=== PATIENT | female | born 1950 | race Caucasian/White ===

== ENCOUNTER 2018-02-14 13:25 | Emergency (ER) | payer MEDICARE, SELFPAY ==
[2018-02-14 13:38] VITALS: BP 139/75; PULSE 61; RESP 16; TEMP 36.7; O2SAT 98
--- NOTE | 2018-02-14 14:35 | DI.CT.S_ITS ---
PROCEDURE: CT CERVICAL SPINE WO CON INDICATIONS: head/neck pain s/p fall TECHNIQUE: Noncontrast 3 mm thick sections acquired from the skull base to the T4 level. Sagittal and coronal reformats were then constructed. For radiation dose reduction, the following was used: automated exposure control, adjustment of mA and/or kV according to patient size. COMPARISON: None. FINDINGS: Image quality: Excellent. Bones: There is levoconvex curvature to the cervical spine. Loss of cervical lordosis. No cervical fractures or dislocations. Degenerative disc disease is most marked at C5-6 and C6-7 slight anterolisthesis at C4-5 and retrolisthesis at C5-6 there is calcification in the posterior spinous ligament at the C5-6 level. Visualized superior ribs are intact. There are Schmorl's nodes and slight depression of the superior endplates at T1 and T3 Soft tissues: A left-sided lead extends down the superior vena cava. Prevertebral soft tissues are normal in thickness. No paravertebral hematomas. No apical pneumothoraces. IMPRESSION: 1. Loss of cervical lordosis and mild levoconvex curvature, possible muscle spasm. 2. Degenerative disc disease and spondylosis C5-6 greater than C6-7. 3. Degenerative changes with Schmorl's nodes and mild depression of the superior endplates of T1 and T3, likely chronic but indeterminate in absence of comparison exams. Dictated by: Matt Foster M.D. on 02/14/2018 at 14:51 Approved by: Matt Foster M.D. on 02/14/2018 at 14:59
--- NOTE | 2018-02-14 14:35 | DI.CT.S_ITS ---
PROCEDURE: CT HEAD/BRAIN WO CON INDICATIONS: head injury with syncope TECHNIQUE: Noncontrast 4.5 mm thick angled axial sections acquired from the foramen magnum to the vertex, with coronal and sagittal reformats. For radiation dose reduction, the following was used: automated exposure control, adjustment of mA and/or kV according to patient size. COMPARISON: [facility], MR, BRAIN W/O CONTRAST, 04/14/2012, 8:21. FINDINGS: Image quality: Head is mildly rotated within the gantry CSF spaces: Basal cisterns are patent. No extra-axial fluid collections. The ventricles are symmetric in size and shape. Brain: No intracranial bleeds or masses. There is cerebral volume loss for age, with resultant ventricular and sulcal prominence. There are periventricular and deep white matter chronic small vessel ischemic changes. There is intracranial internal carotid artery atherosclerosis. Skull and face: Calvarium and visualized facial bones appear intact, without suspicious lesions. Sinuses: Visualized sinuses and mastoids are clear. IMPRESSION: No acute intracranial abnormality. Dictated by: Matt Foster M.D. on 02/14/2018 at 14:48 Approved by: Matt Foster M.D. on 02/14/2018 at 14:51
[2018-02-14] MEDS: ACETAMINOPHEN 325 MG TABLET 650 MG PO (14:49)
[2018-02-14 15:05] VITALS: BP 153/93; PULSE 55; RESP 18; TEMP 36.7; O2SAT 97
--- NOTE | 2018-02-14 15:06 | ED.HEATRA ---
HPI - Head Injury General Chief complaint: Head Injury Stated complaint: GLF-head laceration Time Seen by Provider: 02/14/18 13:30 Source: patient Mode of arrival: ambulatory Limitations: no limitations History of Present Illness HPI Narrative: Patient presents to the emergency department today with a chief complaint of a head injury after a fall from a log. She fell backwards and struck her scalp suffering a laceration and a brief loss of consciousness. Additionally she complains of some neck pain. She has no other injuries and is now awake, alert and oriented. She denies use of alcohol or street drugs. She does not have any blood thinners on board. Her tetanus will need to be updated. She denies numbness, tingling or weakness of her extremities. MD Complaint: head injury Onset (ago): minute(s) Arrival Conditions: C-spine immobilization present Mechanism of Injury: fall Place: outdoors Loss of Consciousness: yes Location of injury: occipital Severity: moderate Quality: burning Radiation: none Other Injuries: laceration Associated symptoms: denies other symptoms Related Data Previous Rx's Medication Instructions Recorded ondansetron [Zofran ODT] 4 mg PO Q6H PRN #14 tab 02/14/18 Allergies Allergy/AdvReac Type Severity Reaction Status Date / Time Sulfa (Sulfonamide Allergy Verified 02/14/18 13:40 Antibiotics) any med that prolongs QT AdvReac Uncoded 02/14/18 13:40 Review of Systems Review of Systems All systems reviewed & are unremarkable except as noted in HPI and below Constitutional Denies chills, Denies fever(s), Reports headache(s), Denies lethargy and Denies weakness Eyes Denies change in vision, Denies eye discharge, Denies irritation and Denies loss of vision ENT Ears, Nose, Mouth, and Throat: Denies change in voice, Reports headache(s), Reports neck pain and Denies sore throat Cardiovascular Denies chest pain, Denies irregular heart rhythm, Denies lightheadedness, Denies palpitations, Denies dyspnea, Denies dyspnea on exertion and Denies orthopnea Respiratory Denies cough, Denies dyspnea, Denies dyspnea on exertion and Denies wheezing Gastrointestinal Gastrointestinal: Denies abdominal pain, Denies change in bowel habits, Denies diarrhea, Denies nausea and Denies vomiting Genitourinary Denies hematuria, Denies flank pain, Denies urinary incontinence and Denies urinary urgency Musculoskeletal Reports limited range of motion and Reports neck pain Integumentary/Breasts Denies pruritus, Denies erythema, Denies rash and Reports wounds Neurologic Denies confusion, Reports headache(s), Denies loss of vision and Denies weakness Psychiatric Denies anxiety, Denies confusion, Denies depression, Denies homicidal ideation and Denies suicidal ideation Endocrine Denies palpitations Hematologic/Lymphatic Denies easy bruising Allergic/Immunologic Denies wheezing [employer] Social History Smoking Status: Never smoker Exam Narrative Exam Narrative: Pleasant 67-year-old female, obviously in pain. GCS 15, a and O x3 Initial Vital Signs Initial Vital Signs: Vital Signs Temperature 98.0 F 02/14/18 13:38 Pulse Rate 61 02/14/18 13:38 Respiratory Rate 16 02/14/18 13:38 Blood Pressure 139/75 H 02/14/18 13:38 Pulse Oximetry 98 02/14/18 13:38 Const General: cooperative, well developed and in distress Nutritional Appearance: well nourished Orientation: alert, awake, oriented x3 and not confused HENMT Head: laceration Nose: external nose normal Face and sinus: normal facial exam Mouth: oral mucosae normal Teeth and gingiva: dentition normal Throat: posterior oropharynx normal Eyes General: appearance normal, both eyes and all related structures Eyelids: eyelids normal Conjunctivae: conjunctivae normal Sclera: sclerae normal Pupils: PERRL EOM: EOM intact bilaterally Neck Neck: normal visual inspection, supple and tender (Midline) Chest Chest: normal inspection of the chest Cardio Rate: regular rate Rhythm: regular rhythm Heart Sounds: no click, no gallops, no murmurs and no rubs Pulses: normal peripheral pulses Back/Spine/Pelvis Back: No CVA tenderness Cervical Spine: cervical ROM normal and No pain with cervical ROM Thoracic/Lumbar Spine: thoracic and lumbar spine normal to inspection Skin Trauma: laceration Neuro General: alert, oriented x3, gait normal and no focal motor deficits Speech: speech normal Psych Appearance: well kempt Mental Status: mental status grossly normal Attitude: cooperative Thought Content: normal and suicidality Judgment: judgment good Procedures Laceration Repair Laceration 1: Site: scalp Size (cm): 3 Description: linear Depth: simple, single layer Local Anesthetic: lidocaine 1% and with bicarb Amount of anesthesia used (mL): 4 Pre-repair: wound explored, irrigated extensively and deep structures intact Skin layer closed with: other ([place]) Course Orders Ordered: ED Orders 02/14/18 14:35 CT cervical spine wo con Stat CT head/brain wo con Stat Discontinued Medications Acetaminophen (Tylenol) 650 mg PO NOW ONE Stop: 02/14/18 14:31 Last Admin: 02/14/18 14:49 Dose: 650 mg Diphtheria/Tetanus/Acell Pertussis (Adacel) 0.5 ml IM .ONCE ONE Stop: 02/14/18 15:27 Last Admin: 02/14/18 15:33 Dose: 0.5 ml Vital Signs - 8 hr 02/14/18 13:38 02/14/18 15:05 Temperature 98.0 F 98.0 F Pulse Rate 61 55 L Respiratory Rate 16 18 Blood Pressure 139/75 H Blood Pressure [Left Arm] 153/93 H Pulse Oximetry 98 97 MDM - Head Injury Imaging Data CT scan - head: Radiologist's impression: PROCEDURE: CT HEAD/BRAIN WO CON INDICATIONS: head injury with syncope TECHNIQUE: Noncontrast 4.5 mm thick angled axial sections acquired from the foramen magnum to the vertex, with coronal and sagittal reformats. For radiation dose reduction, the following was used: automated exposure control, adjustment of mA and/or kV according to patient size. COMPARISON: [facility], MR, BRAIN W/O CONTRAST, 04/14/2012, 8:21. FINDINGS: Image quality: Head is mildly rotated within the gantry CSF spaces: Basal cisterns are patent. No extra-axial fluid collections. The ventricles are symmetric in size and shape. Brain: No intracranial bleeds or masses. There is cerebral volume loss for age, with resultant ventricular and sulcal prominence. There are periventricular and deep white matter chronic small vessel ischemic changes. There is intracranial internal carotid artery atherosclerosis. Skull and face: Calvarium and visualized facial bones appear intact, without suspicious lesions. Sinuses: Visualized sinuses and mastoids are clear. IMPRESSION: No acute intracranial abnormality. Dictated by: Matt Foster M.D. on 02/14/2018 at 14:48 Approved by: Matt Foster M.D. on 02/14/2018 at 14:51 CT Cspine: Radiologist's impression: PROCEDURE: CT CERVICAL SPINE WO CON INDICATIONS: head/neck pain s/p fall TECHNIQUE: Noncontrast 3 mm thick sections acquired from the skull base to the T4 level. Sagittal and coronal reformats were then constructed. For radiation dose reduction, the following was used: automated exposure control, adjustment of mA and/or kV according to patient size. COMPARISON: None. FINDINGS: Image quality: Excellent. Bones: There is levoconvex curvature to the cervical spine. Loss of cervical lordosis. No cervical fractures or dislocations. Degenerative disc disease is most marked at C5-6 and C6-7 slight anterolisthesis at C4-5 and retrolisthesis at C5-6 there is calcification in the posterior spinous ligament at the C5-6 level. Visualized superior ribs are intact. There are Schmorl's nodes and slight depression of the superior endplates at T1 and T3 Soft tissues: A left-sided lead extends down the superior vena cava. Prevertebral soft tissues are normal in thickness. No paravertebral hematomas. No apical pneumothoraces. IMPRESSION: 1. Loss of cervical lordosis and mild levoconvex curvature, possible muscle spasm. 2. Degenerative disc disease and spondylosis C5-6 greater than C6-7. 3. Degenerative changes with Schmorl's nodes and mild depression of the superior endplates of T1 and T3, likely chronic but indeterminate in absence of comparison exams. Dictated by: Matt Foster M.D. on 02/14/2018 at 14:51 Approved by: Matt Foster M.D. on 02/14/2018 at 14:59 Discharge Plan Departure Patient Disposition: Home, Self-Care Clinical Impression: Concussion, Cervical paraspinal muscle spasm Discharge Date/Time: 02/14/18 15:51 Interventions: ED Discharge Assessment Last Done: 02/14/18 15:49 Instructions: DI for Concussion Activity Restrictions/Additional Instructions: Please keep the wound clean and dry to the best of your ability. Please monitor for signs of infection such as redness to the skin or increasing pain. Have the lele removed by your doctor in about 7 days. If you are unable to get into your doctor, we would be happy to remove the lele in that same timeframe. You have a slight concussion and will likely have a mild headache and some nausea for a few days. Avoiding highly stimulating activities and even TV or computers may be helpful in minimizing your symptoms. Avoid activities that will put you at risk for another head injury for at least a week. You can take tylenol or motrin for headache or the prescription provided for nausea/vomiting. Return for worsening or persistent symptoms Prescriptions: New ondansetron [Zofran ODT] 4 mg tablet,disintegrating 4 mg PO Q6H PRN (Reason: nausea and vomiting) Qty: 14 RF: 0
[2018-02-14] MEDS: TET,DIPH,PERTUSS(ACELL),VAC/PF 0.5 ML SYRINGE IM (15:33)
--- NOTE | 2018-02-14 15:47 | PC.NURSE ---
simple scalp lac/ lele x 9 by md, aware of follow up/
== END 2018-02-14 15:51 | disposition home or self-care (01) ==
PROVIDERS: Emergency Provider Emergency Medicine
DX: S06.0X9A Concussion with loss of consciousness of unspecified duration, initial encounter (principal); S01.01XA Laceration without foreign body of scalp, initial encounter; M62.838 Other muscle spasm; W17.89XA Other fall from one level to another, initial encounter
CPT/HCPCS: 12001; 12002; 70450; 72125; 90471; 99283; 90715

== ENCOUNTER 2019-01-11 10:17 | Inpatient (IN) | payer MEDICARE, SELFPAY ==
[2018-12-28 13:59] VITALS: BMI 26.4
[2019-01-11] VITALS (14 sets, daily range): BP systolic 115–153; BP diastolic 60–92; PULSE 57–96; RESP 10–20; TEMP 36–36.9; O2SAT 90–100; BMI 27.3
--- NOTE | 2019-01-11 | DI.RAD.S_ITS ---
PROCEDURE: XR LUMBAR SPINE 2-3V INDICATIONS: L3-4, L4-5 TLIF TECHNIQUE: 3 intraoperative views of the lumbar spine were acquired. COMPARISON: None. FINDINGS: Posterior fusion hardware from L3-L5 is present and appears in appropriate position. Disc spacers at L3-4 and L4-5 are present. Bony alignment is grossly normal. IMPRESSION: Expected intraoperative appearance of Lower lumbar fusion and disc spacer placement. Dictated by: Stella Chanel M.D. on 01/11/2019 at 15:10 Approved by: Stella Chanel M.D. on 01/11/2019 at 15:15
[2019-01-11] MEDS: LACTATED RINGERS 1,000 ML 42 ML IV ×3 (10:59→18:10)
--- NOTE | 2019-01-11 11:49 | PM.PREOP ---
Pre-operative Note Interval Note History & Physical reviewed/Exam performed by Physician: Yes Changes to H&P: No
[2019-01-11] MEDS: CEFAZOLIN 2 GM/100 ML FROZ.PIGGY IV ×2 (12:19→21:07)
--- NOTE | 2019-01-11 13:10 | SUR.OPER ---
Prone on spine table, head in foam head support, padded chest and pelvic supports, gel pad at knees, lower legs supported by pillows; nipples, genitalia and toes free of pressure, arms secured on foam padded arm boards at <90 degrees abduction. Tape over blanket at thigh secured to table.
[2019-01-11] MEDS: BUPIVACAINE 0.25% W/ EPI 30 ML VIAL INJ (13:25)
[2019-01-11] MEDS: BUPIVACAINE LIPOSOME 266 MG/20 ML VIAL INJ (13:27)
--- NOTE | 2019-01-11 15:43 | PM.OP.1 ---
Operative Date/Time/Diagnoses Date of procedure: 01/11/19 Time of procedure: 12:43 Pre-op diagnosis: 1. L3-4, L4-5 spondylolisthesis 2. L3-4, L4-5 spinal stenosis Post-op diagnosis: same Procedure & Clinicians Procedure: 1. L3-4, L4-5 Postero-lateral and posterior interbody fusion 2. L3-4, L4-5 interbody cage placement. 3. L3-4, L4-5 decompressive laminectomy with bilateral facetecomies 4. L3-4, L4-5 Posterior segmental instrumentation 5. [place] of bone marrow from iliac crest 6. Utilization of microsurgical technique and operating microscope Same procedure as scheduled: Yes Indications: Patient has been having chronic back pain and worsening lumbar radiculopathy. Patient failed multiple conservative management with worsening pain weakness and numbness in her lower extremity. Patient has been having difficulty performing activity of daily living. After discussing risks benefits of treatment options, patient elected proceed with surgery. Surgeon: Carmelita Chen Carton Forming Machine Tender: Jerrica Mercer Click Yes if Unassisted: No Anesthesia Type: General Operative Notes Closure Type: primary Specimen(s): none sent Prosthetic devices, grafts, tissues, transplants, or devices: Globus revolve screws, Rise cages Applied: catheter Estimated Blood Loss (mL): 100 Blood products transfused: none Procedure in detail: Patient was seen in the preoperative area. Risks and benefits of the surgery was discussed with the patient. Informed consent was obtained from the patient and placed in the chart. Surgical site was marked. Patient was taken to the operative room. General anesthesia was administered. Prophylactic antibiotic was given to the patient less than 30 min before the incision was made. Patient was placed into a prone position on the Adolph table. Patient's back was then prepped and draped in the sterile fashion. Time-out was performed at this time. Using AP and lateral C-arm imaging the interval between L3-4, L4-5 was identified and marked on patient's back. A 2 inch incision 2 in from midline was made on the right side first. The fascia was incised in line with skin incision. Globus MARS retractors was placed inside the incision and docked onto the L3 and L4 lamina. Using microsurgical technique and operating microscope, a L3 and L4 laminectomy and L3-4, L4-5 facetectomy was performed using a Kerrison rongeur. During the process of decompression more than 75% of bilateral L3-4, L4-5 facets were removed in order to decompress the spinal canal and the lateral recess. The L3-4, L4-5 level was grossly unstable after the decompression was completed and requiring the fusion procedure. The disc space at L3-4, L4-5 was identified. And a total diskectomy was performed at L3-4, L4-5 level. The endplates were decorticated using a rasp and shaver. The total diskectomy and decortication was performed at L3-4, L4-5 level in order to to accomplish a L3-4, L4-5 fusion. The local bone from the laminectomy and facetectomy was saved for local bone grafting. After the total diskectomy and decortication was completed, Bio4 bone graft material was combined with local bone that was harvested earlier. At this time, a separate skin is incision was made over the iliac crest. A Jamshidi needle was inserted into the iliac crest through a separate skin incision. 5 cc of bone marrow aspiration was obtained through the separate skin incision using a Jamshidi needle from the iliac crest. The bone marrow aspiration was combined with local bone and the Bio4 bone grafting material. The bone grafting material was placed into the L3-4, L4-5 interbody space along with two cages, one expandable cage at each level. The cages were expanded to their maximum height using the torque limiting screwdriver. At this time a mirror image incision was made on the left side. The fascia was incised in line with the skin incision. Globus MARS retractor was inserted and docked onto the L3-4, L4-5 posterolateral gutter. Using the power drill, posterior-lateral decortication was performed at L3-4, L4-5 level until bleeding cortical bone was identified. The remaining bone grafting material was placed into the L3-4, L4-5 posterior lateral gutter he order to accomplish posterolateral fusion at the L3-4, L4-5 levels. Using the double C-arm technique, pedicle screws were placed into the L3, L4, L5 pedicles bilaterally. This was done by placing the Jamshidi needle into the pedicles, then placing the guidewires over the Jamshidi needle, and finally placing the cannulated screws over the guidewires bilaterally. After the pedicle screws were placed, 2 titanium rods was locked into the heads of the pedicle screws using locking caps and torque limiting screwdriver. Total 6 pedicles screws were placed. After all the hardware was placed, and confirmed with AP and lateral C-arm imaging, the wound was then irrigated with sterile normal saline and packed with Ray-Izabel gauze for 3 min to accomplish hemostasis. After the gauze was removed the deep fascia was closed with #1 Vicryl suture. The subcutaneous layer was closed with 2-0 Vicryl. The skin was closed with skin lele. Patient tolerated the procedure well. There were no complications. Complications: none Condition: stable Disposition: PACU Plan for aftercare: Admit to inpatient hospital
[2019-01-11] MEDS: fentaNYL 100 MCG/2 ML INJ 50 MCG IV ×2 (15:45→15:55)
[2019-01-11] MEDS: hydrOXYzine 50 MG/ML INJ 25 MG IM (15:56)
[2019-01-11] MEDS: HYDROMORPHONE 2 MG INJ 0.5 MG IV ×2 (16:12→16:33)
[2019-01-11] MEDS: SODIUM CHLORIDE 0.9% 1,000 ML 100 ML IV (17:32)
[2019-01-11] MEDS: OXYCODONE IR 5 MG TABLET 10 MG PO (17:32)
[2019-01-11] MEDS: HYDROMORPHONE 1 MG INJ 0.5 MG IV ×2 (17:33→21:13)
[2019-01-11] MEDS: INSULIN ASPART 100 UNIT/ML INSULN PEN SUBCUT ×2 (18:19→21:10)
[2019-01-11] MEDS: hydrOXYzine pamoate 25 MG CAPSULE 50 MG PO (21:01)
[2019-01-11] MEDS: GABAPENTIN 300 MG CAPSULE 900 MG PO (21:07)
[2019-01-11] MEDS: DOCUSATE 100 MG CAPSULE PO (21:08)
[2019-01-11] MEDS: METFORMIN HCL 500 MG TABLET PO (21:08)
[2019-01-11] MEDS: SENNOSIDES 8.6 MG TABLET 17.2 MG PO (21:08)
[2019-01-11] MEDS: BUSPIRONE 15 MG TABLET 7.5 MG PO (21:09)
[2019-01-11] MEDS: ATORVASTATIN 20 MG TABLET PO (21:09)
[2019-01-11] MEDS: LEVOTHYROXINE 25 MCG TABLET PO (21:10)
[2019-01-11] MEDS: INSULIN NPH 100 UNIT/ML VIAL 10 UNIT SUBCUT (21:15)
[2019-01-11] MEDS: OXYCODONE ER 10 MG TAB PO (21:19)
[2019-01-12] VITALS: BP 144/68; PULSE 65; RESP 18; TEMP 36.9; O2SAT 98
[2019-01-12] MEDS: OXYCODONE IR 5 MG TABLET 10 MG PO ×5 (00:13→16:26)
[2019-01-12] MEDS: CEFAZOLIN 2 GM/100 ML FROZ.PIGGY IV (03:23)
[2019-01-12] MEDS: SODIUM CHLORIDE 0.9% 1,000 ML 100 ML IV (03:23)
[2019-01-12 03:45] VITALS: BP 161/83; PULSE 64; RESP 16; TEMP 36.8; O2SAT 99
[2019-01-12 05:59] LABS: Hemoglobin 11.7 g/dL (12.0-16.0)
[2019-01-12 08:00] VITALS: BP 157/75; PULSE 59; RESP 18; TEMP 36.6; O2SAT 100
[2019-01-12] MEDS: INSULIN ASPART 100 UNIT/ML INSULN PEN SUBCUT ×2 (08:04→20:57)
[2019-01-12] MEDS: FLUTICASONE 120 SPRAY/16 GM SPRAY.SUSP NASAL (08:04)
[2019-01-12] MEDS: INSULIN NPH 100 UNIT/ML VIAL 10 UNIT SUBCUT ×2 (08:04→20:58)
[2019-01-12] MEDS: DOCUSATE 100 MG CAPSULE PO ×2 (08:05→20:55)
[2019-01-12] MEDS: GABAPENTIN 300 MG CAPSULE PO (08:05)
[2019-01-12] MEDS: LOSARTAN 50 MG TABLET PO (08:05)
[2019-01-12] MEDS: METFORMIN HCL 500 MG TABLET PO ×2 (08:05→20:56)
[2019-01-12] MEDS: ACETAMINOPHEN 325 MG TABLET 650 MG PO ×2 (08:05→17:40)
[2019-01-12] MEDS: PANTOPRAZOLE 20 MG TABLET PO (08:05)
[2019-01-12] MEDS: OXYCODONE ER 10 MG TAB PO (08:05)
[2019-01-12] MEDS: SERTRALINE 50 MG TABLET PO (08:05)
[2019-01-12] MEDS: hydrOXYzine pamoate 25 MG CAPSULE PO ×2 (08:06→14:52)
--- NOTE | 2019-01-12 10:10 | PT.IIE ---
Current Diagnoses Other secondary scoliosis, lumbar region (01/11/19) Spondylolisthesis, lumbar region (01/11/19) Spinal stenosis, lumbar region with neurogenic claudication (01/11/19) Surgery Performed Operation Date: 01/11/19 12:15 Actual Procedures p L3-4,L4-5 TLIF w/Posterior Instru. - Carmelita Chen MD Surgical History (Last Updated 12/28/18 @ 14:33 by Rama Cutler RN) AICD (automatic cardioverter/defibrillator) present (Acute ~12/2013) Hx of bilateral cataract extraction (Acute) Hx of cardiac catheterization (Acute) Medical History (Last Updated 01/03/19 @ 15:08 by Rama Cutler RN) Arthritis (Acute) Asthma (Acute) CAD (coronary artery disease) (Acute) CVA (cerebral vascular accident) (Acute ~2004) Cardiac arrest (Acute ~12/2013) Cardiomyopathy (Acute ~12/2017) Chronic pain (Acute) Diabetes (Acute) Diabetic neuropathy (Acute) GERD (gastroesophageal reflux disease) (Acute) H/O: hysterectomy (Acute ~1979) HTN (hypertension) (Acute) Hearing impaired (Acute) Hypothyroid (Acute) Kidney failure (Acute ~2001) Mixed hyperglyceridemia (Acute) Pneumonia (Acute) Prolonged QT interval (Acute) Severe anxiety with panic (Acute) TIA (transient ischemic attack) (Acute) Physical Therapy Inpatient Evaluation/Re-Eval M1 PT/OT-IP Prior Functional Status Start: 01/12/19 13:20 Freq: NEEDED Status: Active Protocol: Document 01/12/19 10:10 AB (Rec: 01/12/19 13:33 AB [id number]) Medical Review Prior Functional Status Medical History Reviewed Yes Communication able to make needs known Mobility and Gait pt stated that she is modified independent with all mobilities and ambulation without AD indoor but uses a 4WW for outdoor/long distance ambulation Social History Household Members spouse Living Arrangements RV Number of Floors (Floors) Two Floors Number of Stairs To Enter/Railing? 4 steps to enter with L rail ascending 3 steps to bedroom with R rail ascending Home Environment Standard Height Toilet Walk in Shower Built-In Shower Seat Home Equipment Four Wheel Walker Straight Cane Hand Held Shower Grab Bars In Shower Additional Social History Comment pt stated that she has a high bed and uses a stool to get into the bed. pt also has walking sticks M2 PT-IP Current Condition Start: 01/12/19 13:20 Freq: NEEDED Status: Active Protocol: Document 01/12/19 10:10 AB (Rec: 01/12/19 13:33 AB [id number]) Physical Therapy Current Condition Current Condition Evaluation Date 01/12/19 Treatment Diagnosis s/p L3-4 fusion/lami; difficulty in walking Onset Date 01/11/19 Precautions Lumbar Precautions Log Roll No Twisting Limit Bending Lifting Restriction of 10 lbs Gait Belt above Incisional Area M3 PT-IP Subjective Start: 01/12/19 13:20 Freq: NEEDED Status: Active Protocol: Document 01/12/19 10:10 AB (Rec: 01/12/19 13:33 AB [id number]) Subjective Physical Therapy Visit Type Type Initial Evaluation Visit Start Time 10:10 Visit Stop Time 10:49 Total Visit Minutes 39 Number of CRYPTOLOGIC SUPERVISOR Visits 0 Physical Therapy Visit Comments Patient Comments pt agreeable to do PT Therapy Pain Assessment Pain When Pain Assessed At Rest Pain Present Pain Present Pain Reported Location back Intensity 5 Scale Used Numeric (1 - 10) Pain Management Techniques Apply Cold Re-positioning Timing of Activity with Medications M4 PT-IP Mobility and Gait Start: 01/12/19 13:20 Freq: NEEDED Status: Active Protocol: Document 01/12/19 10:10 AB (Rec: 01/12/19 13:33 AB [id number]) PT-Bed Mobility Assessment Rolling Type of Rolling Log Rolling Level of Assist Minimal Assistance Supine to Sit Supine to Sit Minimal Assistance 1 Person Assistance PT-Transfer Assessment Sit to and From Stand Sit to and from Stand Minimal Assistance 1 Person Assistance Use of Upper Extremities Equipment Transfer Assistive Device Gait Belt Front Wheeled Walker Orthotic/Prosthetic Devices or Brace: No Transfers Transfer Destination Chair Transfer Technique Stand Step Pivot Transfer Ability Level of Assist Minimal Assistance 1 Person Assistance Use of Upper Extremities Comments Mobility Comments BP supine: 140/79. pt completed supine to sit min A and cues for log roll technique. pt with c/o dizziness. BP: 129/86. pt sat on EOB for a few minutes and stated that dizziness has decreased . BP checked again 141/70. pt ambulated in room. pt agreed to sit on chair. BP checked: 141/61. positioned pt on the chair. pt continues to c/o dizziness. BP checked again: 129/83. informed nurse regarding BP and c/o dizziness. Gait Assessment Gait Gait Assistance Required: Minimum Assistance Distance (Feet) 30 Able to Maintain Weight Bearing Status Yes During Gait Assistive Devices Assistive Device Gait Belt Front Wheeled Walker Orthotic/Prosthetic Devices or Brace: No Gait Deviations General Gait Pattern Antalgic Decreased Stride Length Decreased Feet Clearance Factors Limiting Gait Function Factors Limiting Gait Function Decreased Activity Tolerance Decreased Strength Difficulty Following Directions Limited Range of Motion Pain Poor Balance Poor Safety Awareness PT-Balance Assessment Sitting Balance and Reactions Static Sitting Balance Ability Good Dynamic Sitting Balance Ability Good Standing Balance and Reactions Static Standing Balance Ability Fair Dynamic Standing Balance Ability Fair M5 PT-IP Objective Assessments Start: 01/12/19 13:20 Freq: NEEDED Status: Active Protocol: Document 01/12/19 10:10 AB (Rec: 01/12/19 13:33 AB [id number]) Orientation Orientation/Cognition Level of Alertness Alert Orientation Name Place Situation Language Function Ability No Deficits Noted Safety Awareness Decreased Safety Awareness Memory Description Short Term Impaired Gross Range of Motion Lower Extremity ROM Assessment Within Functional Limits Strength Lower Extremity Strength Assessment Bilaterally Impaired Hip 4-/5 Knee 4-/5 Coordination Assessment Gross Coordination Gross Coordination WNL Sensation Assessment Sensation Gross Sensation WNL Muscle Tone Muscle Tone WNL Yes M6 PT-IP Treatment Start: 01/12/19 13:20 Freq: NEEDED Status: Active Protocol: Document 01/12/19 10:10 AB (Rec: 01/12/19 13:33 AB [id number]) Physical Therapy Treatment Education Education Provided Precautions Weight Bearing Status Post-Op Packet Safety M7 PT-IP Assessment and Plan Start: 01/12/19 13:20 Freq: NEEDED Status: Active Protocol: Document 01/12/19 10:10 AB (Rec: 01/12/19 13:33 AB [id number]) PT Summary Assessment and Plan Potential Rehabilitation Potential Good Status of Condition at Evaluation Evolving Summary Impairments Pain ROM Strength Balance Coordination Sensation Tone Cognition Bed Mobility Transfers Gait Activity Tolerance Assessment Summary pt requiring min A for mobility and will likely progress during hospital stay. pt will have his spouse to assist her at home. will continue to assess progress. Goals Bed Mobility Goal Independent Transfer Goal Independent Front Wheeled Walker Four Wheeled Walker Gait Goal Independent Front Wheel Walker Four Wheel Walker Gait Distance 150 Other Goals up/down 4 steps L rail ascending; up/down 3 steps R rail ascending SBA Days to Meet Goals 5 Frequency of Treatment Frequency Of Treatment Twice a Day Treatment Plan Physical Therapy Treatment Plan Bed Mobility Training Transfer Training Gait Training Therapeutic Exercise Balance Retraining Post Op Education Discharge Planning Hot or Cold Pack Neuromuscular Re-ed Coordination Retraining Manual Therapy Other Recommendations and Next Treatment ambulation Focus Recommendations To Nursing Amount of Assist Needed 1 Person Assist Discharge Recommendations PT Discharge Recommendations Home with Assistance Equipment Needed for Home Before FWW if not safe with 4WW Discharge
--- NOTE | 2019-01-12 10:14 | PM.PNPO.1 ---
Subjective Date Patient Seen: 01/12/19 Time Patient Seen: 10:14 Interval history: Patient's pain is mild now. States she was having more moderate to severe pain earlier this morning. Denies fever chills. No nausea vomiting. Exam Vital Signs (past 8 hours): - 01/12/19 03:45 Temperature 98.3 F Pulse Rate 64 Respiratory Rate 16 Blood Pressure 161/83 H Pulse Oximetry 99 Oxygen Delivery Method Nasal Cannula Oxygen Flow Rate 2 Narrative Exam Narrative: Pleasant 68-year-old female resting comfortably in bed in no apparent distress. Dressing is clean, dry and intact. Sensation grossly intact to light touch bilateral lower extremities. Motor functions intact bilateral lower extremities. Objective Labs Result Diagrams: 01/12/19 05:30 Labs: Laboratory Results - last 24 hr 01/12/19 05:30 Hgb 11.7 L Hct 35.0 L Assessment & Plan Post-op Postoperative Procedures Operation Date: 01/11/19 12:15 Actual Procedures Side Surgeon p L3-4,L4-5 TLIF w/Posterior Instru. Carmelita Chen MD Postop day 1. Mobilize with physical therapy. Limit bending, twisting, lifting. Discharge home in 1-2 days. Quality VTE Deep Vein Thrombosis/Pulmonary Embolism Present on Admission: No
[2019-01-12 12:00] VITALS: BP 124/78; PULSE 63; RESP 18; TEMP 37; O2SAT 96
--- NOTE | 2019-01-12 14:02 | CM.DANOTE ---
DCP: Case received, EMR reviewed and met with patient. Introduced self and role. Was able to obtain baseline health information and living situation by patient in order to complete DCP assessment. Assessment completed with information currently available. Patient is a 68 year old female who admitted yesterday morning to the care of the orthopedic team. PCP: Dr. Nimco Rosas at [facility]. Payer: confirmed: Medicare/[employer]. Patient came to the hospital for a surgical procedure. She had L-3-4, L4-5 lumbar surgery. Met with patient in her room. Alert and oriented, was laying in bed. Discussed discharge planning. Patient stated, she lives with her , Nixon, in [place]. Mentioned shelter briefly, and patient stated, I do not want to go to skilled, I was in shelter in 2013 after having a heart attack, and I would never go there. She is planning on home at this time. She will be working with physical therapy. P: DCP to continue to follow for any needs. She will be working more with physical therapy, and can continue to collaborate with therapy team as well. Goal is for home when medically cleared. Lynette Sahu RN/Dealer Accounts Investigator
--- NOTE | 2019-01-12 15:10 | PT.IPTN ---
Current Diagnoses Other secondary scoliosis, lumbar region (01/11/19) Spondylolisthesis, lumbar region (01/11/19) Spinal stenosis, lumbar region with neurogenic claudication (01/11/19) Surgery Performed Operation Date: 01/11/19 12:15 Actual Procedures p L3-4,L4-5 TLIF w/Posterior Instru. - Carmelita Chen MD Physical Therapy Treatment Note M2 PT-IP Current Condition Start: 01/12/19 13:20 Freq: NEEDED Status: Active Protocol: Document 01/12/19 10:10 AB (Rec: 01/12/19 13:33 AB [id number]) Physical Therapy Current Condition Current Condition Evaluation Date 01/12/19 Treatment Diagnosis s/p L3-4 fusion/lami; difficulty in walking Onset Date 01/11/19 Precautions Lumbar Precautions Log Roll No Twisting Limit Bending Lifting Restriction of 10 lbs Gait Belt above Incisional Area M3 PT-IP Subjective Start: 01/12/19 13:20 Freq: NEEDED Status: Active Protocol: Document 01/12/19 15:10 AB (Rec: 01/12/19 18:00 AB [id number]) Subjective Physical Therapy Visit Type Type Treatment Note Visit Start Time 15:10 Visit Stop Time 15:43 Total Visit Minutes 33 Number of STARTING SHEET TANK OPERATOR Visits 0 Physical Therapy Visit Comments Patient Comments pt agreeable to do PT Therapy Pain Assessment Pain When Pain Assessed At Rest Pain Present Pain Present Pain Reported Location back Intensity 8 Scale Used extends to B buttocks Pain Management Techniques Apply Cold Re-positioning Timing of Activity with Medications M4 PT-IP Mobility and Gait Start: 01/12/19 13:20 Freq: NEEDED Status: Active Protocol: Document 01/12/19 15:10 AB (Rec: 01/12/19 18:00 AB [id number]) PT-Bed Mobility Assessment Rolling Level of Assist Maximal Assistance 1 Person Assistance Supine to Sit Supine to Sit Maximum Assistance 1 Person Assistance Sit to Supine Sit to Supine Maximum Assistance 1 Person Assistance Head of Bed Elevated Scooting Scooting to Edge of Bed Moderate Assistance PT-Transfer Assessment Sit to and From Stand Sit to and from Stand Maximum Assistance 1 Person Assistance Use of Upper Extremities Equipment Transfer Assistive Device Gait Belt Front Wheeled Walker Orthotic/Prosthetic Devices or Brace: No Comments Mobility Comments pt with c/o increase pain but agreeable to do PT. pt completed bed mobility log roll supine to sit max A and max cues. pt unable to tolerate much activity this afternoon. pt requested to go back to bed after PT session. completed sit to supine max A and max cues with HOB elevated per pt' s request. assisted pt with positioning. call light and table placed within reach. Gait Assessment Gait Gait Assistance Required: Moderate Assistance 1 Person Assist Distance (Feet) 2 Able to Maintain Weight Bearing Status Yes During Gait Assistive Devices Assistive Device Gait Belt Front Wheeled Walker Orthotic/Prosthetic Devices or Brace: No Gait Deviations General Gait Pattern Antalgic Decreased Stride Length Decreased Feet Clearance Factors Limiting Gait Function Factors Limiting Gait Function Decreased Activity Tolerance Decreased Strength Limited Range of Motion Pain Poor Balance Poor Safety Awareness Comments Gait Comments pt completed sit to stand from EOB max A and cues and was able to stand using FWW mod A. pt took ~2 steps forward and then backwards and side stepping towards HOB and wants to go back to bed due to increase back pain. informed nurse regarding c/o increase pain and decrease in mobility this afternoon. M5 PT-IP Objective Assessments Start: 01/12/19 13:20 Freq: NEEDED Status: Active Protocol: Document 01/12/19 10:10 AB (Rec: 01/12/19 13:33 AB [id number]) Orientation Orientation/Cognition Level of Alertness Alert Orientation Name Place Situation Language Function Ability No Deficits Noted Safety Awareness Decreased Safety Awareness Memory Description Short Term Impaired Gross Range of Motion Lower Extremity ROM Assessment Within Functional Limits Strength Lower Extremity Strength Assessment Bilaterally Impaired Hip 4-/5 Knee 4-/5 Coordination Assessment Gross Coordination Gross Coordination WNL Sensation Assessment Sensation Gross Sensation WNL Muscle Tone Muscle Tone WNL Yes M6 PT-IP Treatment Start: 01/12/19 13:20 Freq: NEEDED Status: Active Protocol: Document 01/12/19 15:10 AB (Rec: 01/12/19 18:00 AB [id number]) Physical Therapy Treatment Education Education Provided Precautions Safety M7 PT-IP Assessment and Plan Start: 01/12/19 13:20 Freq: NEEDED Status: Active Protocol: Document 01/12/19 15:10 AB (Rec: 01/12/19 18:00 AB [id number]) PT Summary Assessment and Plan Potential Rehabilitation Potential Fair Summary Impairments Pain ROM Strength Balance Coordination Sensation Tone Cognition Bed Mobility Transfers Gait Activity Tolerance Progress Towards Goals Slow Progress due to Pain Assessment Summary pt requiring increase assistance this afternoon and unable to tolerate much activity due to c/o increase pain. d/c plan depending on progress but at this time will require SNF rehab. Goals Bed Mobility Goal Independent Transfer Goal Independent Front Wheeled Walker Four Wheeled Walker Gait Goal Independent Front Wheel Walker Four Wheel Walker Gait Distance 150 Other Goals up/down 4 steps L rail ascending; up/down 3 steps R rail ascending SBA Days to Meet Goals 5 Frequency of Treatment Frequency Of Treatment Twice a Day Treatment Plan Physical Therapy Treatment Plan Bed Mobility Training Transfer Training Gait Training Therapeutic Exercise Balance Retraining Post Op Education Discharge Planning Hot or Cold Pack Neuromuscular Re-ed Coordination Retraining Manual Therapy Other Recommendations and Next Treatment ambulation Focus Recommendations To Nursing Amount of Assist Needed 2 Person Assist Discharge Recommendations PT Discharge Recommendations SNF Rehab Equipment Needed for Home Before FWW if not safe with 4WW Discharge
[2019-01-12] MEDS: HYDROMORPHONE 1 MG INJ 0.5 MG IV (16:26)
[2019-01-12 17:05] VITALS: BP 153/73; PULSE 62; RESP 20; TEMP 36.8; O2SAT 97
[2019-01-12] MEDS: hydrOXYzine pamoate 25 MG CAPSULE 50 MG PO (17:40)
[2019-01-12] MEDS: HYDROMORPHONE 1 MG INJ IV (18:04)
[2019-01-12] MEDS: diazePAM 5 MG TABLET PO (18:04)
--- NOTE | 2019-01-12 19:03 | OT.IP.EVAL ---
Current Diagnoses Other secondary scoliosis, lumbar region (01/11/19) Spondylolisthesis, lumbar region (01/11/19) Spinal stenosis, lumbar region with neurogenic claudication (01/11/19) Surgery Performed Operation Date: 01/11/19 12:15 Actual Procedures p L3-4,L4-5 TLIF w/Posterior Instru. - Carmelita Chen MD Past Medical History (Last Updated 01/03/19 @ 15:08 by Rama Cutler RN) Arthritis (Acute) Asthma (Acute) CAD (coronary artery disease) (Acute) CVA (cerebral vascular accident) (Acute ~2004) Cardiac arrest (Acute ~12/2013) Cardiomyopathy (Acute ~12/2017) Chronic pain (Acute) Diabetes (Acute) Diabetic neuropathy (Acute) GERD (gastroesophageal reflux disease) (Acute) H/O: hysterectomy (Acute ~1979) HTN (hypertension) (Acute) Hearing impaired (Acute) Hypothyroid (Acute) Kidney failure (Acute ~2001) Mixed hyperglyceridemia (Acute) Pneumonia (Acute) Prolonged QT interval (Acute) Severe anxiety with panic (Acute) TIA (transient ischemic attack) (Acute) Surgical History (Last Updated 12/28/18 @ 14:33 by Rama Cutler RN) AICD (automatic cardioverter/defibrillator) present (Acute ~12/2013) Hx of bilateral cataract extraction (Acute) Hx of cardiac catheterization (Acute) Occupational Therapy Inpatient Evaluation/Re-Eval M1 PT/OT-IP Prior Functional Status Start: 01/12/19 18:46 Freq: NEEDED Status: Active Protocol: Document 01/12/19 11:50 [facility] (Rec: 01/12/19 19:03 [facility] [id number]) Medical Review Prior Functional Status Medical History Reviewed Yes Communication able to make needs known Mobility and Gait pt stated that she is modified independent with all mobilities and ambulation without AD indoor but uses a 4WW for outdoor/long distance ambulation Activities of Daily Living and IADL's Pt states completely independent with all Adl and IAdl needs. Social History Household Members spouse Living Arrangements RV Number of Floors (Floors) Two Floors Number of Stairs To Enter/Railing? 4 steps to enter with L rail ascending 3 steps to bedroom with R rail ascending Home Environment Standard Height Toilet Walk in Shower Built-In Shower Seat Home Equipment Four Wheel Walker Straight Cane Hand Held Shower Grab Bars In Shower Additional Social History Comment pt stated that she has a high bed and uses a stool to get into the bed. pt also has walking sticks, and SPC. Pt's works Sun,MON, Tues 2-11pm and to initially have 4 days off. M2 OT-IP Current Condition Start: 01/12/19 18:46 Freq: Status: Active Protocol: Document 01/12/19 11:50 [facility] (Rec: 01/12/19 19:03 [facility] [id number]) Occupational Therapy Current Condition Current Condition Evaluation Date 01/12/19 Treatment Diagnosis s/p L3-4, L4-5 fusion/lami, weakness Diagnosis Onset Date 01/11/19 Post Operative Precautions Lumbar Precautions Log Roll No Twisting Limit Bending Lifting Restriction of 10 lbs Gait Belt above Incisional Area Weight Bearing Status Weight Bearing Status Weight Bear as Tolerated M3 OT- IP Subjective and Pain Start: 01/12/19 18:46 Freq: Status: Active Protocol: Document 01/12/19 11:50 [facility] (Rec: 01/12/19 19:03 [facility] [id number]) OT- Subjective Occupational Therapy Visit Type Type Initial Evaluation Visit Start Time 11:50 Visit Stop Time 12:25 Total Visit Minutes 35 Occupational Therapy Visit Comments Patient Comments Pt wanting to get back to bed. Patient/Caregiver Goals To go home. OT Pain Assessment Pain When Pain Assessed During Mobility Pain Present Pain Present Pain Reported Location back Intensity 6 M4 OT- IP ADL's Start: 01/12/19 18:46 Freq: Status: Active Protocol: Document 01/12/19 11:50 [facility] (Rec: 01/12/19 19:03 [facility] [id number]) OT ADL-Grooming General Evaluation Grooming Ability Contact Guard Assistance Comments OT Grooming Comments CGA for balance while standing wiht FWW to brush her teeth. Educated for body straightener to follow back precaution to bend at hips or spit into a cup. OT ADL-Oral Care General Eval Oral Care Ability Independent OT ADL-Dressing General Eval Lower Body Dressing Ability Maximum Assistance Areas Needing Assistance Socks OT ADL-Toileting Comments OT Toileting Comments Pt not having to go. Educated best to stand to wipe. OT ADL-Bathing Comments OT Bathing Comments Not completed. M5 OT- IP IADL's Start: 01/12/19 18:46 Freq: Status: Active Protocol: Document 01/12/19 11:50 [facility] (Rec: 01/12/19 19:03 [facility] [id number]) OT-Instrumental Activities of Daily Living Medication Management Medication Management Comments Pt states prior does on her own. Money Management Money Management Comments Pt states prior does on her own. M6 OT- IP Functional Cognition Start: 01/12/19 18:46 Freq: Status: Active Protocol: Document 01/12/19 11:50 [facility] (Rec: 01/12/19 19:03 [facility] [id number]) Cognitive Factors Limiting Selfcare Function Cognitive Ability Level of Alertness Alert Patient Orientation Name Place Situation Attention Span Ability Capable of Focused Attention Capable of Sustained Attention Ability to Follow Commands Able to Follow One Step Commands Memory Description Short Term Impaired Safety Awareness Decreased Ability to Apply Precautions Underestimates Need for Assistance Cognitive Comments Cognitive Assessment Comments Pt needs vc for safety and to incorporate back precautions for needs. Pt able to recall 3 /3 back precautions. OT- Vision and Hearing OT- Hearing Assessment OT- Hearing Assessment WFL M7 OT- IP Mobility and Balance Start: 01/12/19 18:46 Freq: Status: Active Protocol: Document 01/12/19 11:50 [facility] (Rec: 01/12/19 19:03 [facility] [id number]) OT- Bed Mobility Assessment Sit to Supine Sit to Supine Assist Moderate Assistance Scooting Scooting to Edge of Bed Minimal Assistance OT-Transfer Assessment Sit to and From Stand Sit to and from Stand Minimal Assistance Moderate Assistance Transfers Transfer Ability Minimal Assistance Technique Transfer Destination Bed Chair Transfer Technique Stand Step Pivot Devices Transfer Assistive Devices Gait Belt Front Wheeled Walker Comments Mobility Comments Pt needing from MOISE to MODA to stand as having trouble to straighten her legs to stand with FWW . BP sitting 157/62 , standing 107/72, sitting 131 /54 and then after up at sink 134/65. OT- Balance Assessment Sitting Balance and Reactions Static Sitting Balance Ability Normal Dynamic Sitting Balance Ability Good Standing Balance and Reactions Static Standing Balance Ability Fair M8 OT- IP Objective Assessments Start: 01/12/19 18:46 Freq: Status: Active Protocol: Document 01/12/19 11:50 [facility] (Rec: 01/12/19 19:03 [facility] [id number]) OT Gross Range of Motion Upper Extremity Range of Motion Assessment Within Functional Limits OT Strength Hand Compilation Clerk Strength Hand Dominance Right Comments Strength Comments LUE 4/5, RUE 4-/5 OT- Coordination Assessment Comments Coordination Comments Intact for grooming needs. OT-Muscle Tone Assessment Muscle Tone WNL Yes M9 OT- IP Assessment and Plan Start: 01/12/19 18:46 Freq: Status: Active Protocol: Document 01/12/19 11:50 [facility] (Rec: 01/12/19 19:03 [facility] [email or web address]) OT Summary Assessment and Plan Potential Rehabilitation Potential Good Analytic Complexity at Evaluation Low Summary OT Impairments Pain Strength Balance Functional Mobility Grooming Dressing Toileting Bathing Toilet Transfers Shower Transfers Progress Towards Goals Slow Progress due to Pain Slow Progress due to Medical Issues Slow Progress due to Activity Tolerance Assessment Summary Pt low complexity and main barriers are steps, now needing extensive assist for ALD needs, and that pending progress and caregiver training, pt would benefit from skilled rehab prior to going home. Goals Grooming Goal Independent Dressing Goal Standby Assistance Toileting Goal Independent Bathing Goal Minimal Assistance Toilet Transfer Goal Independent Shower Transfer Goal Standby Assistance Patient/Caregiver Education Goal Demonstrate Post-Op Precautions Caregiver Independent Assisting Patient OT-Other Goals Grooming goal while standing. Days to Meet Goals 5 Frequency of Treatment Frequency Of Treatment Once a Day Treatment Plan OT Treatment Plan ADL Training Functional Cognition Training Functional Mobility Patient/Family Education Discharge Planning Other Treatment Recommendations and Next LB AED, sit to stands Treatment Focus Discharge Recommendations OT Discharge Recommendations SNF Rehab Home Equipment Needs [facility]
[2019-01-12 20:45] VITALS: BP 136/77; PULSE 61; RESP 18; TEMP 37.1; O2SAT 96
[2019-01-12] MEDS: OXYCODONE ER 20 MG TAB PO (20:55)
[2019-01-12] MEDS: SENNOSIDES 8.6 MG TABLET 17.2 MG PO (20:55)
[2019-01-12] MEDS: GABAPENTIN 300 MG CAPSULE 900 MG PO (20:56)
[2019-01-12] MEDS: ATORVASTATIN 20 MG TABLET PO (20:56)
[2019-01-12] MEDS: LEVOTHYROXINE 25 MCG TABLET PO (20:56)
[2019-01-13 00:17] VITALS: BP 131/60; PULSE 57; RESP 18; TEMP 36.7; O2SAT 92
--- NOTE | 2019-01-13 00:50 | PC.NURSE ---
Resting quietly, easily aroused. Reports pain with movement, denies need for medication at this time. CMS+, foot SCD's placed. Call light within reach.
[2019-01-13] MEDS: OXYCODONE IR 5 MG TABLET 10 MG PO ×3 (02:00→11:00)
[2019-01-13 04:24] VITALS: BP 136/57; PULSE 61; RESP 18; TEMP 36.9; O2SAT 90
--- NOTE | 2019-01-13 05:53 | PC.NURSE ---
Patient requested that the razo stay in until after she works with PT today.
[2019-01-13] MEDS: HYDROMORPHONE 1 MG INJ IV (07:46)
[2019-01-13] MEDS: LOSARTAN 50 MG TABLET PO (07:54)
[2019-01-13] MEDS: INSULIN NPH 100 UNIT/ML VIAL 10 UNIT SUBCUT ×2 (07:54→21:15)
[2019-01-13 07:55] VITALS: BP 183/70; PULSE 66; RESP 16; TEMP 36.7; O2SAT 96
[2019-01-13] MEDS: METFORMIN HCL 500 MG TABLET PO ×2 (07:55→21:14)
[2019-01-13] MEDS: SERTRALINE 50 MG TABLET PO (07:55)
[2019-01-13] MEDS: GABAPENTIN 300 MG CAPSULE PO (07:55)
[2019-01-13] MEDS: PANTOPRAZOLE 20 MG TABLET PO (07:55)
[2019-01-13] MEDS: DOCUSATE 100 MG CAPSULE PO ×2 (07:55→21:14)
[2019-01-13] MEDS: hydrOXYzine pamoate 25 MG CAPSULE PO (07:55)
[2019-01-13] MEDS: ACETAMINOPHEN 325 MG TABLET 650 MG PO ×3 (07:56→23:54)
[2019-01-13] MEDS: FLUTICASONE 120 SPRAY/16 GM SPRAY.SUSP NASAL (07:56)
[2019-01-13] MEDS: MAGNESIUM HYDROXIDE 30 ML UDC PO (07:57)
--- NOTE | 2019-01-13 09:55 | PT.IPTN ---
Current Diagnoses Other secondary scoliosis, lumbar region (01/11/19) Spondylolisthesis, lumbar region (01/11/19) Spinal stenosis, lumbar region with neurogenic claudication (01/11/19) Surgery Performed Operation Date: 01/11/19 12:15 Actual Procedures p L3-4,L4-5 TLIF w/Posterior Instru. - Carmelita Chen MD Physical Therapy Treatment Note M2 PT-IP Current Condition Start: 01/12/19 13:20 Freq: NEEDED Status: Active Protocol: Document 01/12/19 10:10 [facility] (Rec: 01/12/19 13:33 AB [id number]) Physical Therapy Current Condition Current Condition Evaluation Date 01/12/19 Treatment Diagnosis s/p L3-4 fusion/lami; difficulty in walking Onset Date 01/11/19 Precautions Lumbar Precautions Log Roll No Twisting Limit Bending Lifting Restriction of 10 lbs Gait Belt above Incisional Area M3 PT-IP Subjective Start: 01/12/19 13:20 Freq: NEEDED Status: Active Protocol: Document 01/13/19 09:55 [facility] (Rec: 01/13/19 11:38 AB [id number]) Subjective Physical Therapy Visit Type Type Treatment Note Visit Start Time 09:55 Visit Stop Time 10:21 Total Visit Minutes 26 Number of BUSINESS ENTERPRISE OFFICER Visits 0 Physical Therapy Visit Comments Patient Comments pt agreeable to do PT Therapy Pain Assessment Pain When Pain Assessed At Rest Pain Present Pain Present Pain Reported Location back Intensity 6 Scale Used Numeric (1 - 10) Pain Behaviors Facial Grimacing Guarding Pain Management Techniques Apply Cold Re-positioning Timing of Activity with Medications M4 PT-IP Mobility and Gait Start: 01/12/19 13:20 Freq: NEEDED Status: Active Protocol: Document 01/13/19 09:55 [facility] (Rec: 01/13/19 11:38 AB [id number]) PT-Bed Mobility Assessment Rolling Level of Assist Standby Assistance Supine to Sit Supine to Sit Standby Assistance Sit to Supine Sit to Supine Minimal Assistance 1 Person Assistance PT-Transfer Assessment Sit to and From Stand Sit to and from Stand Minimal Assistance 1 Person Assistance Use of Upper Extremities Equipment Transfer Assistive Device Gait Belt Front Wheeled Walker Orthotic/Prosthetic Devices or Brace: No Transfers Transfer Destination Bed Chair Transfer Technique Stand Step Pivot Transfer Ability Level of Assist Minimal Assistance Use of Upper Extremities Gait Assessment Gait Gait Assistance Required: Minimum Assistance Distance (Feet) 30 Able to Maintain Weight Bearing Status Yes During Gait Assistive Devices Assistive Device Gait Belt Front Wheeled Walker Orthotic/Prosthetic Devices or Brace: No Gait Deviations General Gait Pattern Antalgic Decreased Stride Length Decreased Feet Clearance Narrow Based Gait Factors Limiting Gait Function Factors Limiting Gait Function Decreased Activity Tolerance Decreased Strength Limited Range of Motion Pain Poor Balance Poor Safety Awareness Comments Gait Comments pt completed ambulation using FWW 30+15 ft min A and cues for safety. pt presents with usteady antalgic gait. M5 PT-IP Objective Assessments Start: 01/12/19 13:20 Freq: NEEDED Status: Active Protocol: Document 01/12/19 10:10 [facility] (Rec: 01/12/19 13:33 AB [id number]) Orientation Orientation/Cognition Level of Alertness Alert Orientation Name Place Situation Language Function Ability No Deficits Noted Safety Awareness Decreased Safety Awareness Memory Description Short Term Impaired Gross Range of Motion Lower Extremity ROM Assessment Within Functional Limits Strength Lower Extremity Strength Assessment Bilaterally Impaired Hip 4-/5 Knee 4-/5 Coordination Assessment Gross Coordination Gross Coordination WNL Sensation Assessment Sensation Gross Sensation WNL Muscle Tone Muscle Tone WNL Yes M6 PT-IP Treatment Start: 01/12/19 13:20 Freq: NEEDED Status: Active Protocol: Document 01/13/19 09:55 [facility] (Rec: 01/13/19 11:38 AB [id number]) Physical Therapy Treatment Exercises Exercises Quad Sets Education Education Provided Precautions Safety M7 PT-IP Assessment and Plan Start: 01/12/19 13:20 Freq: NEEDED Status: Active Protocol: Document 01/13/19 09:55 [facility] (Rec: 01/13/19 11:38 AB [id number]) PT Summary Assessment and Plan Potential Rehabilitation Potential Good Summary Impairments Pain ROM Strength Balance Coordination Sensation Tone Cognition Bed Mobility Transfers Gait Activity Tolerance Progress Towards Goals Slow Progress due to Pain Assessment Summary pt progressing slowly but continues to require min A and has decrease activity tolerance due to c/o increase pain. d/c plan depending on progress and if spouse will be able to assist pt at home. will continue to assess. Goals Bed Mobility Goal Independent Transfer Goal Independent Front Wheeled Walker Four Wheeled Walker Gait Goal Independent Front Wheel Walker Four Wheel Walker Gait Distance 150 Other Goals up/down 4 steps L rail ascending; up/down 3 steps R rail ascending SBA Days to Meet Goals 5 Frequency of Treatment Frequency Of Treatment Twice a Day Treatment Plan Physical Therapy Treatment Plan Bed Mobility Training Transfer Training Gait Training Therapeutic Exercise Balance Retraining Post Op Education Discharge Planning Hot or Cold Pack Neuromuscular Re-ed Coordination Retraining Manual Therapy Other Recommendations and Next Treatment ambulation Focus Recommendations To Nursing Amount of Assist Needed 1 Person Assist Discharge Recommendations PT Discharge Recommendations Home with 24/7 Assist Home Health SNF Rehab Other Discharge Recommendations depending on progress SNF vs home with 24/7 and homehealth PT Equipment Needed for Home Before FWW if not safe with 4WW Discharge
[2019-01-13] MEDS: OXYCODONE ER 20 MG TAB PO ×2 (11:02→21:18)
--- NOTE | 2019-01-13 11:51 | PM.PNPO.1 ---
Subjective Date Patient Seen: 01/13/19 Time Patient Seen: 11:52 Interval history: Patient is POD#2 s/p L3-4, L4-5 Postero-lateral and posterior interbody fusion with Dr. Chen. Pain control has been intermittent, she is having significant pain after physical therapy. She was able to mobilize in the room with PT. Razo catheter in place. Denies fevers, chills, chest pain, shortness of breath. Exam Vital Signs (past 8 hours): - 01/13/19 04:24 01/13/19 07:55 Temperature 98.4 F 98.1 F Pulse Rate 61 66 Respiratory Rate 18 16 Blood Pressure 136/57 L 183/70 H Pulse Oximetry 90 L 96 Oxygen Delivery Method Nasal Cannula Oxygen Flow Rate 0 Narrative Exam Narrative: 68 year old female resting in bed, alert and oriented in no acute distress. Dressing in place over lumbar spine is clean, dry, and intact. Intact motor function in bilateral lower extremities. SILT. Soft, compressible calves. Objective Labs Result Diagrams: 01/12/19 05:30 Assessment & Plan Post-op Postoperative Procedures Operation Date: 01/11/19 12:15 Actual Procedures Side Surgeon p L3-4,L4-5 TLIF w/Posterior Instru. Carmelita Chen MD Discontinue Oxycodone IR and start Dilaudid for better pain control. DC razo today. Continue to mobilize with PT. Consider discharge tomorrow if better pain control. Quality VTE Deep Vein Thrombosis/Pulmonary Embolism Present on Admission: No
[2019-01-13 11:55] VITALS: BP 126/69; PULSE 68; RESP 16; TEMP 36.8; O2SAT 98
--- NOTE | 2019-01-13 14:53 | PT.IPTN ---
Current Diagnoses Other secondary scoliosis, lumbar region (01/11/19) Spondylolisthesis, lumbar region (01/11/19) Spinal stenosis, lumbar region with neurogenic claudication (01/11/19) Surgery Performed Operation Date: 01/11/19 12:15 Actual Procedures p L3-4,L4-5 TLIF w/Posterior Instru. - Carmelita Chen MD Physical Therapy Treatment Note M2 PT-IP Current Condition Start: 01/12/19 13:20 Freq: NEEDED Status: Active Protocol: Document 01/12/19 10:10 AB (Rec: 01/12/19 13:33 AB [id number]) Physical Therapy Current Condition Current Condition Evaluation Date 01/12/19 Treatment Diagnosis s/p L3-4 fusion/lami; difficulty in walking Onset Date 01/11/19 Precautions Lumbar Precautions Log Roll No Twisting Limit Bending Lifting Restriction of 10 lbs Gait Belt above Incisional Area M3 PT-IP Subjective Start: 01/12/19 13:20 Freq: NEEDED Status: Active Protocol: Document 01/13/19 14:53 AB (Rec: 01/13/19 16:55 AB [id number]) Subjective Physical Therapy Visit Type Type Treatment Note Visit Start Time 14:53 Visit Stop Time 15:34 Total Visit Minutes 41 Number of FACILITIES ADMINISTRATOR Visits 0 Physical Therapy Visit Comments Patient Comments pt agreeable to do PT. pt's spouse present for caregiver training Therapy Pain Assessment Pain When Pain Assessed At Rest Pain Present Pain Present Pain Reported Location back Intensity 7 Scale Used Numeric (1 - 10) Pain Behaviors Guarding Restlessness Wincing Pain Management Techniques Timing of Activity with Medications M4 PT-IP Mobility and Gait Start: 01/12/19 13:20 Freq: NEEDED Status: Active Protocol: Document 01/13/19 14:53 AB (Rec: 01/13/19 16:55 AB [id number]) PT-Bed Mobility Assessment Sit to Supine Sit to Supine Moderate Assistance 1 Person Assistance Scooting Scooting to Edge of Bed Maximum Assistance PT-Transfer Assessment Sit to and From Stand Sit to and from Stand Minimal Assistance Moderate Assistance Equipment Transfer Assistive Device Gait Belt Front Wheeled Walker Orthotic/Prosthetic Devices or Brace: No Transfers Transfer Destination Bed Transfer Technique pt ambulated using FWW Transfer Ability Level of Assist Minimal Assistance Moderate Assistance 1 Person Assistance Use of Upper Extremities Comments Mobility Comments caregiver training conducted. educated spouse on how to use safety belt and how to assist pt. pt completed sit to stand min to mod A and max cues. pt ambulated with spouse using FWW ~ 25 ft but stated that she cannot go any farther due to c/o back pain and requested to go back to bed. pt completed log roll sit to supine mod A and cues. pt assisted with scooting in bed for positioning requiring max A and max cues. informed pt and family regarding SNF rehab recommendation at this time and both agreed. Gait Assessment Gait Gait Assistance Required: Minimum Assistance Moderate Assistance 1 Person Assist Distance (Feet) 25 Assistive Devices Assistive Device Gait Belt Front Wheeled Walker Orthotic/Prosthetic Devices or Brace: No Gait Deviations General Gait Pattern Antalgic Decreased Stride Length Decreased Feet Clearance Factors Limiting Gait Function Factors Limiting Gait Function Decreased Activity Tolerance Decreased Strength Difficulty Following Directions Limited Range of Motion Pain Poor Balance Poor Safety Awareness Comments Gait Comments pt completed 25 ft ambulation using FWW requiring min to mod A and cues. pt presents with unsteady shuffling antalgic gait. pt unable to elevated LE up high due to c/o pain and LE weakness needing to lean on FWW with BUE for support. Stair Climbing Assessment Comments Stair Climbing Comments pt is not appropriate to do stair climbing at this time due to LE weakness. will continue to assess. M5 PT-IP Objective Assessments Start: 01/12/19 13:20 Freq: NEEDED Status: Active Protocol: Document 01/12/19 10:10 AB (Rec: 01/12/19 13:33 AB [id number]) Orientation Orientation/Cognition Level of Alertness Alert Orientation Name Place Situation Language Function Ability No Deficits Noted Safety Awareness Decreased Safety Awareness Memory Description Short Term Impaired Gross Range of Motion Lower Extremity ROM Assessment Within Functional Limits Strength Lower Extremity Strength Assessment Bilaterally Impaired Hip 4-/5 Knee 4-/5 Coordination Assessment Gross Coordination Gross Coordination WNL Sensation Assessment Sensation Gross Sensation WNL Muscle Tone Muscle Tone WNL Yes M6 PT-IP Treatment Start: 01/12/19 13:20 Freq: NEEDED Status: Active Protocol: Document 01/13/19 14:53 AB (Rec: 01/13/19 16:55 AB [id number]) Physical Therapy Treatment Education Education Provided Precautions Safety M7 PT-IP Assessment and Plan Start: 01/12/19 13:20 Freq: NEEDED Status: Active Protocol: Document 01/13/19 14:53 AB (Rec: 01/13/19 16:55 AB [id number]) PT Summary Assessment and Plan Potential Rehabilitation Potential Fair Summary Impairments Pain ROM Strength Balance Coordination Sensation Tone Cognition Bed Mobility Transfers Gait Activity Tolerance Progress Towards Goals Slow Progress due to Pain Slow Progress due to Activity Tolerance Assessment Summary caregiver training initiated but pt unable to tolerate much activity and is not appropriate to do stair climbing training at this time . pt is not consistent with mobility and is needing more assistance this afternoon compared to this morning. pt continues to c/o increase LBP limiting mobility and safety. pt will require SNF rehab to improve strength and functional independence. Goals Bed Mobility Goal Independent Transfer Goal Independent Front Wheeled Walker Four Wheeled Walker Gait Goal Independent Front Wheel Walker Four Wheel Walker Gait Distance 150 Other Goals up/down 4 steps L rail ascending; up/down 3 steps R rail ascending SBA Days to Meet Goals 5 Frequency of Treatment Frequency Of Treatment Twice a Day Treatment Plan Physical Therapy Treatment Plan Bed Mobility Training Transfer Training Gait Training Therapeutic Exercise Balance Retraining Post Op Education Discharge Planning Hot or Cold Pack Neuromuscular Re-ed Coordination Retraining Manual Therapy Other Recommendations and Next Treatment ambulation Focus Recommendations To Nursing Amount of Assist Needed 1 Person Assist Discharge Recommendations PT Discharge Recommendations SNF Rehab
[2019-01-13] MEDS: HYDROMORPHONE 2 MG TABLET PO ×2 (15:03→21:18)
[2019-01-13 15:45] VITALS: BP 147/75; PULSE 65; RESP 20; TEMP 37; O2SAT 98
--- NOTE | 2019-01-13 16:08 | OT.IP.TRT ---
Current Diagnoses Other secondary scoliosis, lumbar region (01/11/19) Spondylolisthesis, lumbar region (01/11/19) Spinal stenosis, lumbar region with neurogenic claudication (01/11/19) Surgery Performed Operation Date: 01/11/19 12:15 Actual Procedures p L3-4,L4-5 TLIF w/Posterior Instru. - Carmelita Chen MD Occupational Therapy Treatment Note M2 OT-IP Current Condition Start: 01/12/19 18:46 Freq: Status: Active Protocol: Document 01/12/19 11:50 [facility] (Rec: 01/12/19 19:03 [facility] [id number]) Occupational Therapy Current Condition Current Condition Evaluation Date 01/12/19 Treatment Diagnosis s/p L3-4, L4-5 fusion/lami, weakness Diagnosis Onset Date 01/11/19 Post Operative Precautions Lumbar Precautions Log Roll No Twisting Limit Bending Lifting Restriction of 10 lbs Gait Belt above Incisional Area Weight Bearing Status Weight Bearing Status Weight Bear as Tolerated M3 OT- IP Subjective and Pain Start: 01/12/19 18:46 Freq: Status: Active Protocol: Document 01/13/19 16:06 [facility] (Rec: 01/13/19 16:08 [facility] [id number]) OT- Subjective Occupational Therapy Visit Type Type Patient Refusal Notes Pt states too tired and feeling encouraged as just completed caregiver training with PT and . Therefore pt wanting to rest and do OT tomorrow and try for showering as well.
[2019-01-13] MEDS: INSULIN ASPART 100 UNIT/ML INSULN PEN SUBCUT (16:50)
[2019-01-13 19:43] VITALS: BP 131/61; PULSE 65; RESP 18; TEMP 37.2; O2SAT 94
[2019-01-13] MEDS: ATORVASTATIN 20 MG TABLET PO (21:14)
[2019-01-13] MEDS: GABAPENTIN 300 MG CAPSULE 900 MG PO (21:14)
[2019-01-13] MEDS: LEVOTHYROXINE 25 MCG TABLET PO (21:15)
[2019-01-13] MEDS: SENNOSIDES 8.6 MG TABLET 17.2 MG PO (21:15)
[2019-01-14] VITALS (7 sets, daily range): BP systolic 130–152; BP diastolic 65–74; PULSE 62–70; RESP 14–18; TEMP 36.9–37.4; O2SAT 92–96
[2019-01-14] MEDS: HYDROMORPHONE 2 MG TABLET PO (03:21)
--- NOTE | 2019-01-14 07:03 | PC.NURSE ---
Pt doing well. Standing and pivoting to BSC with 1 person. Did much better this morning.
[2019-01-14] MEDS: HYDROMORPHONE 1 MG INJ IV ×2 (08:20→22:49)
[2019-01-14] MEDS: SERTRALINE 50 MG TABLET PO (08:28)
[2019-01-14] MEDS: DOCUSATE 100 MG CAPSULE PO ×2 (08:28→20:41)
[2019-01-14] MEDS: LOSARTAN 50 MG TABLET PO (08:29)
[2019-01-14] MEDS: GABAPENTIN 300 MG CAPSULE PO (08:29)
[2019-01-14] MEDS: PANTOPRAZOLE 20 MG TABLET PO (08:30)
[2019-01-14] MEDS: METFORMIN HCL 500 MG TABLET PO ×2 (08:46→20:41)
[2019-01-14] MEDS: FLUTICASONE 120 SPRAY/16 GM SPRAY.SUSP NASAL (08:46)
[2019-01-14] MEDS: OXYCODONE ER 20 MG TAB PO ×2 (08:49→20:42)
[2019-01-14] MEDS: diazePAM 5 MG TABLET PO (08:50)
[2019-01-14] MEDS: INSULIN NPH 100 UNIT/ML VIAL 10 UNIT SUBCUT ×2 (08:51→20:48)
--- NOTE | 2019-01-14 10:38 | P.PN_ITS ---
Subjective Date Patient Seen: 01/14/19 Time Patient Seen: 10:35 Interval history: Hospital day 4, postop day 3 following L3-4, L4-5 laminectomy, TLIF, cage and posterior screw fixation. Patient remained stable post operatively. She did work with PT yesterday but noted to still have some leg weakness and needing assist. Patient is adamant about not going to SNF and wanting to go home. She does note increased back pain today. Has been taking OxyContin 20 mg b.i.d. and Dilaudid 2 mg for breakthrough pain. العراقي DC yesterday and voiding well. Exam Vital Signs (past 8 hours): - 01/14/19 03:36 01/14/19 09:00 Temperature 98.7 F 98.4 F Pulse Rate 63 62 Respiratory Rate 16 18 Blood Pressure 130/68 152/65 H Pulse Oximetry 92 96 Oxygen Delivery Method Nasal Cannula Oxygen Flow Rate 0 Narrative Exam Narrative: Alert, oriented lying in bed complaining of moderate discomfort to back. Back. Dressing dry with some slight shadowing. Legs. No calf pain or swelling. Pulses symmetrical. Good sensation to touch to lower legs. Good strength on foot dorsiflexion plantar flexion. Objective Labs Result Diagrams: 01/12/19 05:30 Assessment & Plan Post-op Postoperative Procedures Operation Date: 01/11/19 12:15 Actual Procedures Side Surgeon p L3-4,L4-5 TLIF w/Posterior Instru. Carmelita Chen MD Plan: Will start patient on dexamethasone 4 mg q.8h to see if this will help he r pain. Work with PT today. Possible discharge home tomorrow if she is stable. Apply CovRsite dressing to lumbar incision before discharge home. Quality VTE Deep Vein Thrombosis/Pulmonary Embolism Present on Admission: No
--- NOTE | 2019-01-14 11:08 | PT.IPTN ---
Current Diagnoses Other secondary scoliosis, lumbar region (01/11/19) Spondylolisthesis, lumbar region (01/11/19) Spinal stenosis, lumbar region with neurogenic claudication (01/11/19) Surgery Performed Operation Date: 01/11/19 12:15 Actual Procedures p L3-4,L4-5 TLIF w/Posterior Instru. - Carmelita Chen MD Physical Therapy Treatment Note M2 PT-IP Current Condition Start: 01/12/19 13:20 Freq: NEEDED Status: Active Protocol: Document 01/12/19 10:10 AB (Rec: 01/12/19 13:33 AB [id number]) Physical Therapy Current Condition Current Condition Evaluation Date 01/12/19 Treatment Diagnosis s/p L3-4 fusion/lami; difficulty in walking Onset Date 01/11/19 Precautions Lumbar Precautions Log Roll No Twisting Limit Bending Lifting Restriction of 10 lbs Gait Belt above Incisional Area M3 PT-IP Subjective Start: 01/12/19 13:20 Freq: NEEDED Status: Active Protocol: Document 01/14/19 11:08 AB (Rec: 01/14/19 13:02 AB [id number]) Subjective Physical Therapy Visit Type Type Treatment Note Visit Start Time 11:08 Visit Stop Time 11:34 Total Visit Minutes 26 Number of BOTTOMER OPERATOR Visits 0 Physical Therapy Visit Comments Patient Comments pt agreeable to do PT Therapy Pain Assessment Pain When Pain Assessed At Rest Pain Present Pain Present Pain Reported Location back Intensity 6 Scale Used Numeric (1 - 10) Pain Behaviors Guarding Moaning Wincing Pain Management Techniques Timing of Activity with Medications M4 PT-IP Mobility and Gait Start: 01/12/19 13:20 Freq: NEEDED Status: Active Protocol: Document 01/14/19 11:08 AB (Rec: 01/14/19 13:02 AB [id number]) PT-Bed Mobility Assessment Rolling Type of Rolling Log Rolling Level of Assist Minimal Assistance Supine to Sit Supine to Sit Moderate Assistance PT-Transfer Assessment Sit to and From Stand Sit to and from Stand Moderate Assistance Equipment Transfer Assistive Device Gait Belt Front Wheeled Walker Transfers Transfer Technique pt ambulated using FWW Transfer Ability Level of Assist Moderate Assistance Gait Assessment Gait Gait Assistance Required: Moderate Assistance Distance (Feet) 35 Able to Maintain Weight Bearing Status Yes During Gait Assistive Devices Assistive Device Gait Belt Front Wheeled Walker Orthotic/Prosthetic Devices or Brace: No Gait Deviations General Gait Pattern Antalgic Decreased Stride Length Decreased Feet Clearance Factors Limiting Gait Function Factors Limiting Gait Function Decreased Activity Tolerance Decreased Strength Difficulty Following Directions Limited Range of Motion Pain Poor Balance Poor Safety Awareness Comments Gait Comments pt ambulated using FWW 35 ft mod A and cues. pt c/o BLE feeling like they are going to give out midway during ambulation. M5 PT-IP Objective Assessments Start: 01/12/19 13:20 Freq: NEEDED Status: Active Protocol: Document 01/12/19 10:10 AB (Rec: 01/12/19 13:33 AB [id number]) Orientation Orientation/Cognition Level of Alertness Alert Orientation Name Place Situation Language Function Ability No Deficits Noted Safety Awareness Decreased Safety Awareness Memory Description Short Term Impaired Gross Range of Motion Lower Extremity ROM Assessment Within Functional Limits Strength Lower Extremity Strength Assessment Bilaterally Impaired Hip 4-/5 Knee 4-/5 Coordination Assessment Gross Coordination Gross Coordination WNL Sensation Assessment Sensation Gross Sensation WNL Muscle Tone Muscle Tone WNL Yes M6 PT-IP Treatment Start: 01/12/19 13:20 Freq: NEEDED Status: Active Protocol: Document 01/14/19 11:08 AB (Rec: 01/14/19 13:02 AB [id number]) Physical Therapy Treatment Education Education Provided Precautions Safety M7 PT-IP Assessment and Plan Start: 01/12/19 13:20 Freq: NEEDED Status: Active Protocol: Document 01/14/19 11:08 AB (Rec: 01/14/19 13:02 AB [id number]) PT Summary Assessment and Plan Potential Rehabilitation Potential Fair Summary Impairments Pain ROM Strength Balance Coordination Sensation Tone Cognition Bed Mobility Transfers Gait Activity Tolerance Progress Towards Goals Slow Progress due to Pain Assessment Summary pt continues to require mod A and cues with mobility. unable to elevated BLE high during ambulation and presents with antalgic gait. pt also has decrease activity tolerance affecting mobility. pt has stairs to get into the house and is not appropriate to do stairs at this time. pt will need SNF rehab to improve strength and mobility. Goals Bed Mobility Goal Independent Transfer Goal Independent Front Wheeled Walker Four Wheeled Walker Gait Goal Independent Front Wheel Walker Four Wheel Walker Gait Distance 150 Other Goals up/down 4 steps L rail ascending; up/down 3 steps R rail ascending SBA Days to Meet Goals 5 Frequency of Treatment Frequency Of Treatment Twice a Day Treatment Plan Physical Therapy Treatment Plan Bed Mobility Training Transfer Training Gait Training Therapeutic Exercise Balance Retraining Post Op Education Discharge Planning Hot or Cold Pack Neuromuscular Re-ed Coordination Retraining Manual Therapy Other Recommendations and Next Treatment ambulation Focus Recommendations To Nursing Amount of Assist Needed 1 Person Assist Discharge Recommendations PT Discharge Recommendations SNF Rehab
[2019-01-14] MEDS: dexAMETHasone 4 MG TABLET PO ×3 (11:44→22:42)
--- NOTE | 2019-01-14 13:35 | PT.IPTN ---
Current Diagnoses Other secondary scoliosis, lumbar region (01/11/19) Spondylolisthesis, lumbar region (01/11/19) Spinal stenosis, lumbar region with neurogenic claudication (01/11/19) Surgery Performed Operation Date: 01/11/19 12:15 Actual Procedures p L3-4,L4-5 TLIF w/Posterior Instru. - Carmelita Chen MD Physical Therapy Treatment Note M2 PT-IP Current Condition Start: 01/12/19 13:20 Freq: NEEDED Status: Active Protocol: Document 01/12/19 10:10 AB (Rec: 01/12/19 13:33 AB [id number]) Physical Therapy Current Condition Current Condition Evaluation Date 01/12/19 Treatment Diagnosis s/p L3-4 fusion/lami; difficulty in walking Onset Date 01/11/19 Precautions Lumbar Precautions Log Roll No Twisting Limit Bending Lifting Restriction of 10 lbs Gait Belt above Incisional Area M3 PT-IP Subjective Start: 01/12/19 13:20 Freq: NEEDED Status: Active Protocol: Document 01/14/19 13:51 AB (Rec: 01/14/19 14:06 AB [id number]) Subjective Physical Therapy Visit Type Type Treatment Note Visit Start Time 13:35 Visit Stop Time 13:50 Total Visit Minutes 15 Number of GLASS BENDER Visits 0 Physical Therapy Visit Comments Patient Comments pt agreeable to do PT Therapy Pain Assessment Pain When Pain Assessed At Rest Pain Present Pain Present Pain Reported Location back Intensity 7 Scale Used Numeric (1 - 10) Pain Management Techniques Apply Cold Re-positioning Timing of Activity with Medications M4 PT-IP Mobility and Gait Start: 01/12/19 13:20 Freq: NEEDED Status: Active Protocol: Document 01/14/19 13:51 AB (Rec: 01/14/19 14:06 AB [id number]) PT-Bed Mobility Assessment Sit to Supine Sit to Supine Minimal Assistance PT-Transfer Assessment Sit to and From Stand Sit to and from Stand Minimal Assistance Moderate Assistance 2 Person Assistance Use of Upper Extremities Equipment Transfer Assistive Device Gait Belt Front Wheeled Walker Orthotic/Prosthetic Devices or Brace: No Transfers Transfer Destination Bed Transfer Technique pt ambulated using FWW Transfer Ability Level of Assist Minimal Assistance Moderate Assistance 1 Person Assistance Use of Upper Extremities Gait Assessment Gait Gait Assistance Required: Minimum Assistance Moderate Assistance Distance (Feet) 45 Able to Maintain Weight Bearing Status Yes During Gait Assistive Devices Assistive Device Gait Belt Front Wheeled Walker Orthotic/Prosthetic Devices or Brace: No Gait Deviations General Gait Pattern Antalgic Decreased Stride Length Decreased Feet Clearance Step-to Gait Factors Limiting Gait Function Factors Limiting Gait Function Decreased Activity Tolerance Decreased Strength Difficulty Following Directions Limited Range of Motion Pain Poor Balance Poor Safety Awareness Comments Gait Comments pt continues to present with shuffling gait with decrease LE elevation. M5 PT-IP Objective Assessments Start: 01/12/19 13:20 Freq: NEEDED Status: Active Protocol: Document 01/12/19 10:10 AB (Rec: 01/12/19 13:33 AB [id number]) Orientation Orientation/Cognition Level of Alertness Alert Orientation Name Place Situation Language Function Ability No Deficits Noted Safety Awareness Decreased Safety Awareness Memory Description Short Term Impaired Gross Range of Motion Lower Extremity ROM Assessment Within Functional Limits Strength Lower Extremity Strength Assessment Bilaterally Impaired Hip 4-/5 Knee 4-/5 Coordination Assessment Gross Coordination Gross Coordination WNL Sensation Assessment Sensation Gross Sensation WNL Muscle Tone Muscle Tone WNL Yes M6 PT-IP Treatment Start: 01/12/19 13:20 Freq: NEEDED Status: Active Protocol: Document 01/14/19 11:08 AB (Rec: 01/14/19 13:02 AB [id number]) Physical Therapy Treatment Education Education Provided Precautions Safety M7 PT-IP Assessment and Plan Start: 01/12/19 13:20 Freq: NEEDED Status: Active Protocol: Document 01/14/19 13:51 AB (Rec: 01/14/19 14:06 AB [id number]) PT Summary Assessment and Plan Potential Rehabilitation Potential Fair Summary Impairments Pain ROM Strength Balance Coordination Sensation Tone Cognition Bed Mobility Transfers Gait Activity Tolerance Progress Towards Goals Slow Progress due to Pain Slow Progress due to Activity Tolerance Assessment Summary pt continues to require min to mod A and cues with all mobilities. presents with decrease activity tolerance affecting mobility. pt will benefit from SNF rehab to improve strength and mobility. Goals Bed Mobility Goal Independent Transfer Goal Independent Front Wheeled Walker Four Wheeled Walker Gait Goal Independent Front Wheel Walker Four Wheel Walker Gait Distance 150 Other Goals up/down 4 steps L rail ascending; up/down 3 steps R rail ascending SBA Days to Meet Goals 5 Frequency of Treatment Frequency Of Treatment Twice a Day Treatment Plan Physical Therapy Treatment Plan Bed Mobility Training Transfer Training Gait Training Therapeutic Exercise Balance Retraining Post Op Education Discharge Planning Hot or Cold Pack Neuromuscular Re-ed Coordination Retraining Manual Therapy Other Recommendations and Next Treatment ambulation Focus Recommendations To Nursing Amount of Assist Needed 1 Person Assist Discharge Recommendations PT Discharge Recommendations SNF Rehab
--- NOTE | 2019-01-14 14:06 | OT.IP.TRT ---
Current Diagnoses Other secondary scoliosis, lumbar region (01/11/19) Spondylolisthesis, lumbar region (01/11/19) Spinal stenosis, lumbar region with neurogenic claudication (01/11/19) Surgery Performed Operation Date: 01/11/19 12:15 Actual Procedures p L3-4,L4-5 TLIF w/Posterior Instru. - Carmelita Chen MD Occupational Therapy Treatment Note M2 OT-IP Current Condition Start: 01/12/19 18:46 Freq: Status: Active Protocol: Document 01/12/19 11:50 [facility] (Rec: 01/12/19 19:03 [facility] [id number]) Occupational Therapy Current Condition Current Condition Evaluation Date 01/12/19 Treatment Diagnosis s/p L3-4, L4-5 fusion/lami, weakness Diagnosis Onset Date 01/11/19 Post Operative Precautions Lumbar Precautions Log Roll No Twisting Limit Bending Lifting Restriction of 10 lbs Gait Belt above Incisional Area Weight Bearing Status Weight Bearing Status Weight Bear as Tolerated M3 OT- IP Subjective and Pain Start: 01/12/19 18:46 Freq: Status: Active Protocol: Document 01/14/19 13:44 [facility] (Rec: 01/14/19 14:06 [facility] [id number]) OT- Subjective Occupational Therapy Visit Type Type Treatment Note Visit Start Time 09:45 Visit Stop Time 10:22 Total Visit Minutes 38 Notes Pt sitting on the BSc when therapist came in. Occupational Therapy Visit Comments Patient Comments Pt very anxious, and more confused today which may be attributed from pain medications. Patient/Caregiver Goals Pt now open to going to skilled rehab. OT Pain Assessment Pain When Pain Assessed At Rest Pain Present Pain Present Pain Reported Location back Intensity 6 Scale Used Numeric (1 - 10) M4 OT- IP ADL's Start: 01/12/19 18:46 Freq: Status: Active Protocol: Document 01/14/19 13:44 [facility] (Rec: 01/14/19 14:06 [facility] [id number]) OT ADL-Dressing General Eval Lower Body Dressing Ability Maximum Assistance Areas Needing Assistance Underpants/Brief Comments OT Dressing Comments Pt not wanting to try use of chemical recovery operator, I am just not coordinated. Therefore needing assist to randee brief over her feet , pt able to assist to pull up towards her hip and needing assist to complete up over hips. OT ADL-Toileting General Evaluation Toileting Ability Moderate Assistance Areas Needing Assistance Perform Perineal Hygiene Comments OT Toileting Comments Pt able to wipe from the front , however easier to stand with FWW and MOISE to wipe and not wanting to try to wipe the from behind and would need assist. OT ADL-Bathing Comments OT Bathing Comments Not completed. M5 OT- IP IADL's Start: 01/12/19 18:46 Freq: Status: Active Protocol: Document 01/12/19 11:50 [facility] (Rec: 01/12/19 19:03 [facility] [id number]) OT-Instrumental Activities of Daily Living Medication Management Medication Management Comments Pt states prior does on her own. Money Management Money Management Comments Pt states prior does on her own. M6 OT- IP Functional Cognition Start: 01/12/19 18:46 Freq: Status: Active Protocol: Document 01/14/19 13:44 [facility] (Rec: 01/14/19 14:06 [facility] [id number]) Cognitive Factors Limiting Selfcare Function Cognitive Ability Level of Alertness Alert Confusional State Patient Orientation Name Place Situation Attention Span Ability Capable of Focused Attention Capable of Sustained Attention Ability to Follow Commands Able to Follow One Step Commands Memory Description Short Term Impaired Safety Awareness Underestimates Need for Assistance Problem Solving Ability Needs Assist to Identify Solutions Cognitive Comments Cognitive Assessment Comments Pt getting anxious and forgetting that she was sitting on the BSC, in addition did not remember if she urinate or not. Pt needing lots of encouragement, vc to take a deep breath, etc ... Pt needing step by step instructions for safety awareness , scoot forward, lean forwards, push up with BUE , straighten out her legs. M7 OT- IP Mobility and Balance Start: 01/12/19 18:46 Freq: Status: Active Protocol: Document 01/14/19 13:44 [facility] (Rec: 01/14/19 14:06 [facility] [id number]) OT- Bed Mobility Assessment Sit to Supine Sit to Supine Assist Moderate Assistance OT-Transfer Assessment Sit to and From Stand Sit to and from Stand Minimal Assistance Moderate Assistance Transfers Transfer Ability Minimal Assistance Technique Transfer Destination Bed Bedside Commode Transfer Technique Stand Step Pivot Devices Transfer Assistive Devices Gait Belt Front Wheeled Walker Comments Mobility Comments Pt able to come to stand with MOISE with FWW. MODA to transfer to bed, assist to guide FWW and cues for pt to move her feet. MODA to help get back into bed. OT- Balance Assessment Sitting Balance and Reactions Static Sitting Balance Ability Normal Dynamic Sitting Balance Ability Good Standing Balance and Reactions Static Standing Balance Ability Fair M8 OT- IP Objective Assessments Start: 01/12/19 18:46 Freq: Status: Active Protocol: Document 01/12/19 11:50 [facility] (Rec: 01/12/19 19:03 [facility] [id number]) OT Gross Range of Motion Upper Extremity Range of Motion Assessment Within Functional Limits OT Strength Hand Marketing Operations Coordinator Strength Hand Dominance Right Comments Strength Comments LUE 4/5, RUE 4-/5 OT- Coordination Assessment Comments Coordination Comments Intact for grooming needs. OT-Muscle Tone Assessment Muscle Tone WNL Yes M9 OT- IP Assessment and Plan Start: 01/12/19 18:46 Freq: Status: Active Protocol: Document 01/14/19 13:44 [facility] (Rec: 01/14/19 14:06 [facility] [id number]) OT Summary Assessment and Plan Potential Rehabilitation Potential Good Analytic Complexity at Evaluation Low Summary OT Impairments Pain Strength Balance Functional Mobility Grooming Dressing Toileting Bathing Toilet Transfers Shower Transfers Progress Towards Goals Slow Progress due to Pain Slow Progress due to Medical Issues Slow Progress due to Activity Tolerance Assessment Summary Pt more confused today. Pt agreeable to go to skilled rehab now. Goals Grooming Goal Independent Dressing Goal Standby Assistance Toileting Goal Independent Bathing Goal Minimal Assistance Toilet Transfer Goal Independent Shower Transfer Goal Standby Assistance Patient/Caregiver Education Goal Demonstrate Post-Op Precautions Caregiver Independent Assisting Patient OT-Other Goals shower Days to Meet Goals 3 Frequency of Treatment Frequency Of Treatment Once a Day Treatment Plan OT Treatment Plan ADL Training Functional Cognition Training Functional Mobility Patient/Family Education Discharge Planning Discharge Recommendations OT Discharge Recommendations [facility] Rehab
--- NOTE | 2019-01-14 15:04 | CM.DPNOTE ---
Recommendation from therapy team continues to be SNF. Met w/pt to review DCP, pt initially very committed to returning home but has reconsidered and feels DC to SNF would be a safer plan. Pt requests [facility] be contacted for referral. Spoke w/ Lynsey at [facility], faxed referral packet to [facility] efax. Pt has been accepted for admission on Wednesday. P: DC expected Wednesday to [facility] via cabulance. PASRR needs to be completed before DC. YEN Schuler
[2019-01-14] MEDS: INSULIN ASPART 100 UNIT/ML INSULN PEN SUBCUT ×2 (17:35→20:48)
--- NOTE | 2019-01-14 20:21 | PC.NURSE ---
Pt given shower, tihs life insurance underwriter changed low back drsg to coversite, incisions with lele no s/ss infection, afebrile 98.4, no new drainage noted, pp+, cms+. 1PA FWW to BSC to void. This life insurance underwriter made ice pack with large ziplock baggie and pillowcase for comfort to low back. Obtained water pitcher and filled with ice water per pt request since drinking much water. RFA SL. [id number], 1 unit insulin given. Bed alarm on for safety.
[2019-01-14] MEDS: GABAPENTIN 300 MG CAPSULE 900 MG PO (20:41)
[2019-01-14] MEDS: LEVOTHYROXINE 25 MCG TABLET PO (20:41)
[2019-01-14] MEDS: ATORVASTATIN 20 MG TABLET PO (20:41)
[2019-01-14] MEDS: SENNOSIDES 8.6 MG TABLET 17.2 MG PO (20:42)
[2019-01-15 03:59] VITALS: BP 155/75; PULSE 56; RESP 18; TEMP 36.8; O2SAT 92
[2019-01-15] MEDS: HYDROMORPHONE 2 MG TABLET PO (04:43)
--- NOTE | 2019-01-15 04:50 | PC.NURSE ---
Addendum entered by Iraida Anthony R.N. 01/15/19 06:11: Dexamethasone teaching done, especially regarding pt's diabetes and diet. Pt verbalized understanding of watching carb and sugar intake for the next few days, especially if she is discharged with that medication. Original Note: Pt doing fairly well. Spoke to patient about taking PO pain meds as opposed to IV and she is in agreeance; Received 2mg Dilaudid PO which she was doing fine with the previous night when i had her. 1P assist to BSC. Little Hypertensive, SBP 150s. Fingerstick checked overnight: 182.
[2019-01-15] MEDS: dexAMETHasone 4 MG TABLET PO (05:59)
[2019-01-15] MEDS: DOCUSATE 100 MG CAPSULE PO (08:34)
[2019-01-15] MEDS: LOSARTAN 50 MG TABLET PO (08:35)
[2019-01-15] MEDS: SERTRALINE 50 MG TABLET PO (08:35)
[2019-01-15] MEDS: GABAPENTIN 300 MG CAPSULE PO (08:35)
[2019-01-15] MEDS: METFORMIN HCL 500 MG TABLET PO (08:35)
[2019-01-15] MEDS: PANTOPRAZOLE 20 MG TABLET PO (08:35)
[2019-01-15] MEDS: OXYCODONE ER 20 MG TAB PO (08:37)
[2019-01-15] MEDS: INSULIN ASPART 100 UNIT/ML INSULN PEN SUBCUT ×2 (08:38→12:13)
[2019-01-15] MEDS: INSULIN NPH 100 UNIT/ML VIAL 10 UNIT SUBCUT (08:39)
[2019-01-15 09:00] VITALS: BP 134/64; PULSE 63; RESP 16; TEMP 36.6; O2SAT 96
--- NOTE | 2019-01-15 09:35 | PT.IPTN ---
Current Diagnoses Other secondary scoliosis, lumbar region (01/11/19) Spondylolisthesis, lumbar region (01/11/19) Spinal stenosis, lumbar region with neurogenic claudication (01/11/19) Surgery Performed Operation Date: 01/11/19 12:15 Actual Procedures p L3-4,L4-5 TLIF w/Posterior Instru. - Carmelita Chen MD Physical Therapy Treatment Note M2 PT-IP Current Condition Start: 01/12/19 13:20 Freq: NEEDED Status: Active Protocol: Document 01/12/19 10:10 AB (Rec: 01/12/19 13:33 AB [id number]) Physical Therapy Current Condition Current Condition Evaluation Date 01/12/19 Treatment Diagnosis s/p L3-4 fusion/lami; difficulty in walking Onset Date 01/11/19 Precautions Lumbar Precautions Log Roll No Twisting Limit Bending Lifting Restriction of 10 lbs Gait Belt above Incisional Area M3 PT-IP Subjective Start: 01/12/19 13:20 Freq: NEEDED Status: Active Protocol: Document 01/15/19 09:05 CLB (Rec: 01/15/19 11:14 CLB [id number]) Subjective Physical Therapy Visit Type Type Treatment Note Visit Start Time 09:05 Visit Stop Time 09:35 Total Visit Minutes 30 Number of BLEACH MIXER Visits 1 Physical Therapy Visit Comments Patient Comments pt agreeable to do PT Patient Goals to go home not to SNF Therapy Pain Assessment Pain When Pain Assessed At Rest Pain Present Pain Present Pain Reported Location back Intensity 4 Scale Used Numeric (1 - 10) Pain Management Techniques Apply Cold Re-positioning Timing of Activity with Medications M4 PT-IP Mobility and Gait Start: 01/12/19 13:20 Freq: NEEDED Status: Active Protocol: Document 01/15/19 09:05 CLB (Rec: 01/15/19 11:14 CLB [id number]) PT-Bed Mobility Assessment Rolling Type of Rolling Log Rolling Level of Assist Contact Guard Assistance Supine to Sit Supine to Sit Contact Guard Assistance 1 Person Assistance Sit to Supine Sit to Supine Minimal Assistance 1 Person Assistance Scooting Scooting to Edge of Bed Contact Guard Assistance PT-Transfer Assessment Sit to and From Stand Sit to and from Stand Contact Guard Assistance 1 Person Assistance Use of Upper Extremities Equipment Transfer Assistive Device Gait Belt Front Wheeled Walker Orthotic/Prosthetic Devices or Brace: No Transfers Transfer Destination Bed Chair Toilet Transfer Ability Level of Assist Minimal Assistance 1 Person Assistance Use of Upper Extremities Gait Assessment Gait Gait Assistance Required: Contact Guard Assist 1 Person Assist Distance (Feet) 100 Able to Maintain Weight Bearing Status Yes During Gait Assistive Devices Assistive Device Gait Belt Front Wheeled Walker Orthotic/Prosthetic Devices or Brace: No Gait Deviations General Gait Pattern Antalgic Decreased Stride Length Decreased Feet Clearance Factors Limiting Gait Function Factors Limiting Gait Function Decreased Activity Tolerance Decreased Strength Difficulty Following Directions Limited Range of Motion Pain Poor Balance Poor Safety Awareness Comments Gait Comments Pt improving with gait quality and was able to use small step through gait pattern and increase gait distance to ~ 100ft. Stair Climbing Assessment Comments Stair Climbing Comments Will trial stairs with before d/c. M5 PT-IP Objective Assessments Start: 01/12/19 13:20 Freq: NEEDED Status: Active Protocol: Document 01/12/19 10:10 AB (Rec: 01/12/19 13:33 AB [id number]) Orientation Orientation/Cognition Level of Alertness Alert Orientation Name Place Situation Language Function Ability No Deficits Noted Safety Awareness Decreased Safety Awareness Memory Description Short Term Impaired Gross Range of Motion Lower Extremity ROM Assessment Within Functional Limits Strength Lower Extremity Strength Assessment Bilaterally Impaired Hip 4-/5 Knee 4-/5 Coordination Assessment Gross Coordination Gross Coordination WNL Sensation Assessment Sensation Gross Sensation WNL Muscle Tone Muscle Tone WNL Yes M6 PT-IP Treatment Start: 01/12/19 13:20 Freq: NEEDED Status: Active Protocol: Document 01/15/19 09:05 CLB (Rec: 01/15/19 11:14 CLB [id number]) Physical Therapy Treatment Exercises Exercises Ankle Pumps Education Education Provided Precautions Safety M7 PT-IP Assessment and Plan Start: 01/12/19 13:20 Freq: NEEDED Status: Active Protocol: Document 01/15/19 09:05 CLB (Rec: 01/15/19 11:14 CLB [id number]) PT Summary Assessment and Plan Summary Impairments Pain ROM Strength Balance Coordination Sensation Tone Cognition Bed Mobility Transfers Gait Activity Tolerance Assessment Summary Pt improved with all mobility and gait requiring CGA for log roll, sit-stand and Min A for reverse log roll for assist with LE and cues for sequencing. Will trial stairs with pt and this afternoon as pt is refusing at this time to go to SNF. Goals Bed Mobility Goal Independent Transfer Goal Independent Front Wheeled Walker Four Wheeled Walker Gait Goal Independent Front Wheel Walker Four Wheel Walker Gait Distance 150 Other Goals up/down 4 steps L rail ascending; up/down 3 steps R rail ascending SBA Days to Meet Goals 5 Treatment Plan Physical Therapy Treatment Plan Bed Mobility Training Transfer Training Gait Training Therapeutic Exercise Balance Retraining Post Op Education Discharge Planning Hot or Cold Pack Neuromuscular Re-ed Coordination Retraining Manual Therapy Other Recommendations and Next Treatment stair training with . Focus Recommendations To Nursing Amount of Assist Needed 1 Person Assist Discharge Recommendations PT Discharge Recommendations SNF Rehab
[2019-01-15] MEDS: diazePAM 5 MG TABLET PO (10:55)
--- NOTE | 2019-01-15 11:24 | PM.PN.1 ---
Exam Vital Signs (past 8 hours): - 01/15/19 03:59 01/15/19 09:00 Temperature 98.2 F 97.9 F Pulse Rate 56 L 63 Respiratory Rate 18 16 Blood Pressure 155/75 H 134/64 Pulse Oximetry 92 96 Oxygen Delivery Method Room Air Oxygen Flow Rate 0 Objective Labs Result Diagrams: 01/12/19 05:30 Assessment & Plan Assessment & Plan narrative: Patient is admitted after surgery. Patient has been stable and progressing with physical therapy. Patient is neurovascularly intact on exam. Patient has no signs or symptoms of DVT. Patient's dressing is clean dry and intact. Doing well post surgery. Will go to SNF for a few days due to living in a RV. Will discharge to SNF today. Quality VTE Deep Vein Thrombosis/Pulmonary Embolism Present on Admission: No
--- NOTE | 2019-01-15 13:07 | PC.NURSE ---
Pt ready for discharge home. HL removed. Pt has belongings packed up and spouse will be accompanying her to [facility] during transfer. Report called to Talita DURBIN after 5 attempts to connect. All questions answered. Pt out via w/c by [facility] personnel with all belongings.
--- NOTE | 2019-01-15 14:24 | CM.DPNOTE ---
DC Note: [facility] accepts pt for admission today. Faxed DC ppk, upon Dr Chen's completion, to include signed med list, DC summary, completed PASRR to [facility] efax per Mikayla's request. P: DC to [facility] via w/c van today approx 1300, RN pt/family aware and agreeable to this plan. YEN Schuler
== END 2019-01-15 13:12 | DRG 455 ==
PROVIDERS: Admitting Provider Orthopaedic Surgery Orthopaedic Surgery of the Spine; Visit Provider Orthopaedic Surgery Orthopaedic Surgery of the Spine
PROC: 0SG10AJ Fusion of 2 or more Lumbar Vertebral Joints with Interbody Fusion Device, Posterior Approach, Anterior Column, Open Approach (ICD-10-PCS; principal; 2019-01-11 12:15)
DX: M48.062 Spinal stenosis, lumbar region with neurogenic claudication (principal); M47.26 Other spondylosis with radiculopathy, lumbar region; I10 Essential (primary) hypertension; E11.9 Type 2 diabetes mellitus without complications; F32.9 Major depressive disorder, single episode, unspecified; Z79.84 Long term (current) use of oral hypoglycemic drugs; E78.5 Hyperlipidemia, unspecified; J45.909 Unspecified asthma, uncomplicated; E03.9 Hypothyroidism, unspecified; Z95.810 Presence of automatic (implantable) cardiac defibrillator; G89.29 Other chronic pain; I25.10 Atherosclerotic heart disease of native coronary artery without angina pectoris
CPT/HCPCS: 36415; 72100; 76000; 82962; 85014; 85018; 97116; 97162; 97165; 97530; 97535; C1776; C9290; J0330; J0690; J1100; J1170; J2704; J3010; J3410

== ENCOUNTER → 2019-04-19 14:02 | Outpatient (CLI) | payer MEDICARE, SELFPAY ==
[2019-01-11 17:12] VITALS: BMI 27.3
== END ==
PROVIDERS: PCP Internal Medicine; Visit Provider Internal Medicine
DX: Z78.0 Asymptomatic menopausal state (principal); Z90.722 Acquired absence of ovaries, bilateral
CPT/HCPCS: 77080; 77081

== ENCOUNTER 2019-10-28 15:05 | Observation (INO) | payer OTHER, SELFPAY ==
[2019-01-11 17:12] VITALS: BMI 27.3
[2019-10-28] VITALS (13 sets, daily range): BP systolic 125–194; BP diastolic 67–105; PULSE 50–59; RESP 12–24; TEMP 36.6–36.8; O2SAT 93–99; BMI 24.9
--- NOTE | 2019-10-28 15:18 | DI.RAD.S_ITS ---
PROCEDURE: XR CHEST 1V INDICATIONS: chest pain TECHNIQUE: One view of the chest was acquired. COMPARISON: [facility], , XR CXR 1V, 11/06/2004, 15:25. FINDINGS: Surgical changes and devices: An AICD is seen. Lungs and pleura: Lungs are clear. No pleural effusions or pneumothorax. There is elevation the right hemidiaphragm. Mediastinum: The cardiac contours are mildly enlarged. The aorta demonstrates calcification and tortuosity. Bones and chest wall: No suspicious bony lesions. Age-appropriate bony degenerative changes are seen. Overlying soft tissues appear unremarkable. IMPRESSION: Elevation of the right hemidiaphragm. Mild cardiomegaly. AICD. Dictated by: Elie Felder M.D. on 10/28/2019 at 14:56 Approved by: Elie Felder M.D. on 10/28/2019 at 14:58
[2019-10-28 15:23] LABS: Add Manual Diff / Slide Review NO; Basophils Absolute Auto 100 /uL (0-100); Basophils Percent Auto 1.5 % (0-2); Eosinophils Absolute Auto 500 /uL (0-450); Eosinophils Percent Auto 7.5 % (2-4); Hematocrit 41.6 % (36-46); Hemoglobin 14.2 g/dL (12.0-16.0); Lymphocytes Absolute Auto 1900 /uL (1100-4500); Mean Corpuscular Hemoglobin 29.9 PG (26-34); Monocytes Absolute Auto 600 /uL (0-900); Monocytes Percent Auto 9.2 % (3-14); Neutrophils Absolute Auto 3200 /uL (1500-7000); Neutrophils Percent Auto 51.8 % (50-75); Platelet Count 185 X10^3/uL (150-400); Red Blood Cell Count 4.73 X10^6/uL (4.0-5.2); Red Cell Distribution Width 13.7 % (11.6-14.8); White Blood Cell Count 6.3 X10^3/uL (4.5-11.0)
[2019-10-28 15:31] LABS: Prothrombin Time 11.8 SECONDS (10.1-12.7)
[2019-10-28 15:34] LABS: PTT Partial Thromboplastin Tim 29 SECONDS (26.4-36.2)
[2019-10-28 15:38] LABS: Alanine Aminotransferase 14 IU/L (<35); Albumin 4.5 g/dL (3.5-5.0); Albumin Globulin Ratio 1.5 (1.0-2.8); Alkaline Phosphatase 57 U/L (38-126); Aspartate Aminotransferase 22 IU/L (14-36); BUN Creatinine Ratio 16.2 (6-22); Bilirubin Total 0.5 mg/dL (0.2-1.3); Blood Urea Nitrogen 16 mg/dL (7-17); Calcium 10.1 mg/dL (8.4-10.2); Carbon Dioxide 27 mmol/L (22-32); Chloride 104 mmol/L (98-107); Creatine Kinase 42 U/L (30-135); Estimated Glomerular Filt Rate 55.3 mL/min (>60); Globulin 3.1 g/dL (1.7-4.1); Glucose 115 mg/dL (80-110); HEMOLYSIS < 15 (0-50); Lipase 148 U/L (23-300); Potassium 4.1 mmol/L (3.4-5.1); Sodium 139 mmol/L (137-145); Total Protein 7.6 g/dL (6.3-8.2)
[2019-10-28 15:49] LABS: Troponin I < 0.012 ng/mL (0.01-0.034)
--- NOTE | 2019-10-28 16:20 | ED.CHESTPAIN ---
HPI - Chest Pain <TOLU Silva - Last Filed: 10/28/19 21:33> General Chief Complaint: Chest Pain Stated Complaint: Chest Pain Time Seen by Provider: 10/28/19 15:35 Source: patient and EMS Mode of arrival: EMS Limitations: no limitations History of Present Illness HPI narrative: 69yo female with a history of past cardiac arrest with AICD/pacemaker insertion in 2013, presents to the emergency department for reports of chest pain. Patient states around 1:30 p.m. this afternoon she laid down to read a book and developed chest pain. She states it started in her back and radiated to her chest and up to both of her shoulders. She felt some nausea with the onset of chest pain. She got up to go to the bathroom and took 2 buspirone thinking that it was anxiety. This did not help. About 10 minutes later she took 2 baby aspirin and some nitroglycerin that was given to her in 2013, this did not relieve her pain. About a 1/2 hour from the onset of pain she reported the pain getting worse, she called 911. EMS gave her 3 sprays of nitro and a full aspirin which completely relieved her pain. Upon admission to the emergency department she complains of a substernal chest pain that is a dull aching/pressure, which she rates as a 2/10 on severity scale. She denies any aggravating or alleviating factors. She denies feeling shortness of breath, vomiting, fevers, cough, chills, dizziness, syncope, or any other concerns. Patient states she usually has a slow heart rate, she states, ?it is usually in the 30s ?. Patient denies any exposure to confirmed COVID-[address] Tavarez for cardiology. Related Data Home Medications Medication Instructions Recorded Confirmed Novolin N NPH U-100 Insulin 10 unit SUBCUT BID 12/28/18 01/11/19 aspirin [Aspir-81] 81 mg PO QPM 12/28/18 01/11/19 atorvastatin [Lipitor] 20 mg PO BEDTIME 12/28/18 01/11/19 buspirone 7.5 mg PO QID PRN 12/28/18 01/11/19 fluticasone propionate [Flonase 1 spray INTRANASAL DAILY 12/28/18 01/11/19 Allergy Relief] gabapentin 1,200 mg PO SEEINSTR 12/28/18 01/11/19 hydroxyzine HCl 50 mg PO DAILY PRN 12/28/18 01/11/19 levothyroxine 25 mcg PO BEDTIME 12/28/18 01/11/19 losartan 50 mg PO DAILY 12/28/18 01/11/19 metformin 500 mg PO BID 12/28/18 01/11/19 omeprazole 20 mg PO DAILY 12/28/18 01/11/19 oxycodone-acetaminophen 1 tab PO BID 12/28/18 01/11/19 potassium 99 mg PO DAILY 12/28/18 01/11/19 sertraline [Zoloft] 50 mg PO DAILY 12/28/18 01/11/19 Previous Rx's Medication Instructions Recorded dexamethasone 4 mg PO Q8HR #12 tab 01/15/19 diazepam 5 mg PO Q8HR PRN #40 tab 01/15/19 hydromorphone 2 mg PO Q4HR PRN #60 tab 01/15/19 oxycodone [OxyContin] 20 mg PO BID #40 tab 01/15/19 Allergies Allergy/AdvReac Type Severity Reaction Status Date / Time Sulfa (Sulfonamide Allergy Intermediate Rash, Verified 01/11/19 11:07 Antibiotics) swelling NSAIDS (Non-Steroidal AdvReac Severe Severe Verified 01/11/19 11:07 Anti-Inflamma kidney failure risperidone AdvReac Severe Cardiac Verified 01/11/19 11:07 Arrest any med that prolongs QT AdvReac Severe Cardiac Uncoded 01/11/19 11:08 Arrest Review of Systems <TOLU Silva - Last Filed: 10/28/19 21:33> Review of Systems Narrative: REVIEW OF SYSTEMS: GENERAL: Denies fever or chills. HENT: No head trauma, hearing loss or sore throat. EYES: No loss of vision, double vision, eye pain, or irritation. CARDIOVASCULAR: Reports chest pain, see HPI. RESPIRATORY: No shortness of breath or cough. GASTROINTESTINAL: No vomiting, diarrhea, or constipation. GENITOURINARY: No dysuria. MUSCULOSKELETAL: No pain, weakness, or deformities. INTEGUMENTARY: No rash, lesions, or pruritus. NEURO: No numbness, tingling, memory loss, or confusion. PSYCH: No behavior or mood changes. Patient History <TOLU Silva - Last Filed: 10/28/19 21:33> Medical History Arthritis (Acute) Asthma (Acute) CAD (coronary artery disease) (Acute) Cardiac arrest (Acute ~12/2013) Cardiomyopathy (Acute ~12/2017) Chronic pain (Acute) CVA (cerebral vascular accident) (Acute ~2004) Diabetes (Acute) Diabetic neuropathy (Acute) GERD (gastroesophageal reflux disease) (Acute) Hearing impaired (Acute) HTN (hypertension) (Acute) Hypothyroid (Acute) Kidney failure (Acute ~2001) Mixed hyperglyceridemia (Acute) Pneumonia (Acute) Prolonged QT interval (Acute) Severe anxiety with panic (Acute) TIA (transient ischemic attack) (Acute) Surgical History AICD (automatic cardioverter/defibrillator) present (Acute ~12/2013) H/O: hysterectomy (Acute ~1979) Hx of bilateral cataract extraction (Acute) Hx of cardiac catheterization (Acute) Social History household members: spouse Smoking Status: Never smoker alcohol intake: current Smoking Status: Never smoker alcohol intake frequency: a few times a week Substance Use Type: does not use Exam <TLOU Silva - Last Filed: 10/28/19 21:33> Initial Vital Signs Initial Vital Signs: Vital Signs Temperature 98.3 F 10/28/19 15:18 Pulse Rate 53 L 10/28/19 15:18 Respiratory Rate 20 10/28/19 15:18 Blood Pressure 183/85 H 10/28/19 15:18 Pulse Oximetry 99 10/28/19 15:18 PHYSICAL EXAMINATION: GENERAL: Well groomed, alert, and cooperative. Thin appearing. Answers questions promptly and appropriately. Vital signs noted. HENT: Normocephalic, atraumatic. Ear canals patent. Oral mucosa is pink and moist. EYES: Conjunctiva pink, sclera white, no periorbital swelling. CHEST: Normal to inspection and without deformities. CARDIOVASCULAR: S1 and S2 sounds heard, AICD palpated, tachycardia, and normal rhythm. RESPIRATORY: Normal respiratory rate, trachea midline, airway patent. No stridor, nasal flaring or accessory muscle use. Lungs are clear in all desouza without wheeze, rhonchi, or crackles. GASTROINTESTINAL: Bowel sounds normoactive. Abdomen is soft and non-tender. No organomegaly. MUSCULOSKELETAL: Normal gait and coordination. Equal tone and mass bilaterally. EXTREMITIES: CMS intact. Moves all extremities. SKIN: Warm, dry, soft, appropriate color for ethnicity. No lesions, rashes, or wounds. NEURO: Alert and Oriented X 3. Good coordination. No ataxia, or sensory deficits, or cognitive issues. PSYCH: Appropriate affect and mood. <Fernando Shrestha DO - Last Filed: 10/28/19 21:53> Initial Vital Signs Initial Vital Signs: Vital Signs Temperature 98.3 F 10/28/19 15:18 Pulse Rate 53 L 10/28/19 15:18 Respiratory Rate 20 10/28/19 15:18 Blood Pressure 183/85 H 10/28/19 15:18 Pulse Oximetry 99 10/28/19 15:18 Scores <TOLU Silva - Last Filed: 10/28/19 21:33> HEART Score Heart Score history: Moderately Suspicious Heart Score EKG: Non-Specific repolarization disturbance Heart Score Age: > or = 65 years old Heart Score risk factors: 1-2 risk factors Heart Score troponin: < or = to normal limit Heart Score Total: 5 Course <TOLU Silva - Last Filed: 10/28/19 21:33> Orders Ordered: ED Orders 10/28/19 15:00 Complete Blood Count AUTO DIFF Stat Comprehensive Metabolic Panel Stat Lipase Stat Partial Thromboplastin Time Stat Prothrombin Time INR Stat Troponin & CK Cardiac Panel Stat 10/28/19 15:18 XR chest 1V Stat EKG-12 Lead Stat 10/28/19 15:19 D Dimer Stat 10/28/19 16:50 EKG-12 Lead Stat 10/28/19 17:16 Troponin I Stat Discontinued Medications Nitroglycerin (Nitro-Bid) 1 inch TOP NOW ONE Stop: 10/28/19 16:02 Last Admin: 10/28/19 16:23 Dose: 1 inch Documented by: PATRICK Oxycodone/Acetaminophen (Percocet 5/325) 2 tab PO NOW ONE Stop: 10/28/19 21:19 Last Admin: 10/28/19 21:23 Dose: 2 tab Documented by: LA Consultations Consultation #1: Patient originally staffed with Dr. Slade, discussed symptoms, test, and test results. 1838: I spoke with Dr. Gould at [facility] cardiology. We discussed symptoms, patient's history, lab results, and EKG. Dr. Gould noted that patient has had similar episodes of this chest pain or past, she had a clean cath November of 2017 which is reassuring. Patient was also diagnosed with stress cardiomyopathy which occurred on November,. Dr. Gould provided a fax number and reported that she will review patients EKGs. [address] Gould at [facility] cardiology after she reviewed EKGs, she reported new T-wave inversions in precordial leads when reviewing these EKGs in comparison to her. 2100: I had extensive conversation with patient about the benefits and risks of admission versus discharge. Patient was concern for coronavirus. Explained that extensive precautions were taken to prevent transmission, however it remains a concern. I also discussed the risks of returning home. Patient decided on admission. We also discussed transfer, patient agreed to admission here. Vital Signs Vital signs: Vital Signs - 8 hr 10/28/19 15:18 10/28/19 15:26 10/28/19 16:00 Temperature 98.3 F Pulse Rate 53 L 50 L 51 L Respiratory Rate 20 16 20 Blood Pressure 183/85 H Blood Pressure [Left Arm] 165/98 H 133/82 Pulse Oximetry 99 93 98 10/28/19 16:21 10/28/19 16:23 10/28/19 16:30 Temperature Pulse Rate 52 L 50 L 52 L Respiratory Rate 20 19 Blood Pressure 143/76 H Blood Pressure [Left Arm] 143/76 H Pulse Oximetry 97 95 10/28/19 16:45 10/28/19 17:04 10/28/19 19:58 Temperature Pulse Rate 52 L 55 L 51 L Respiratory Rate 12 24 21 Blood Pressure Blood Pressure [Left Arm] 125/92 H Pulse Oximetry 95 97 99 <Fernando Shrestha, DO - Last Filed: 10/28/19 21:53> Orders Ordered: ED Orders 10/28/19 15:00 Complete Blood Count AUTO DIFF Stat Comprehensive Metabolic Panel Stat Lipase Stat Partial Thromboplastin Time Stat Prothrombin Time INR Stat Troponin & CK Cardiac Panel Stat 10/28/19 15:18 XR chest 1V Stat EKG-12 Lead Stat 10/28/19 15:19 D Dimer Stat 10/28/19 16:50 EKG-12 Lead Stat 10/28/19 17:16 Troponin I Stat Discontinued Medications Nitroglycerin (Nitro-Bid) 1 inch TOP NOW ONE Stop: 10/28/19 16:02 Last Admin: 10/28/19 16:23 Dose: 1 inch Documented by: PATRICK Oxycodone/Acetaminophen (Percocet 5/325) 2 tab PO NOW ONE Stop: 10/28/19 21:19 Last Admin: 10/28/19 21:23 Dose: 2 tab Documented by: LA Vital Signs Vital signs: Vital Signs - 8 hr 10/28/19 15:18 10/28/19 15:26 10/28/19 16:00 Temperature 98.3 F Pulse Rate 53 L 50 L 51 L Respiratory Rate 20 16 20 Blood Pressure 183/85 H Blood Pressure [Left Arm] 165/98 H 133/82 Pulse Oximetry 99 93 98 10/28/19 16:21 10/28/19 16:23 10/28/19 16:30 Temperature Pulse Rate 52 L 50 L 52 L Respiratory Rate 20 19 Blood Pressure 143/76 H Blood Pressure [Left Arm] 143/76 H Pulse Oximetry 97 95 10/28/19 16:45 10/28/19 17:04 10/28/19 19:58 Temperature Pulse Rate 52 L 55 L 51 L Respiratory Rate 12 24 21 Blood Pressure Blood Pressure [Left Arm] 125/92 H Pulse Oximetry 95 97 99 MDM - Chest Pain <IreneTOLU Sloan - Last Filed: 10/28/19 21:33> Medical Records Data Attestation: I reviewed the patient's medical records. Lab Data Attestation: I reviewed the patient's lab results. Result diagrams: 10/28/19 15:00 10/28/19 15:00 Labs: Lab Results 10/28/19 10/28/19 10/28/19 Range/Units 15:00 15:00 15:00 WBC 6.3 (4.5-11.0) X10^3/uL RBC 4.73 (4.0-5.2) X10^6/uL Hgb 14.2 (12.0-16.0) g/dL Hct 41.6 (36-46) % MCV 88.0 (80-100) fL MCH 29.9 (26-34) PG MCHC 34.0 (30-36) % RDW 13.7 (11.6-14.8) % Plt Count 185 (150-400) X10^3/uL Neut % (Auto) 51.8 (50-75) % Lymph % (Auto) 30.0 (25-40) % Bulloch % (Auto) 9.2 (3-14) % Eos % (Auto) 7.5 H (2-4) % Baso % (Auto) 1.5 (0-2) % Neut # (Auto) 3200 (7159-4170) /uL Lymph # (Auto) 1900 (6200-4095) /uL Bulloch # (Auto) 600 (0-900) /uL Eos # (Auto) 500 H (0-450) /uL Baso # (Auto) 100 (0-100) /uL PT 11.8 (10.1-12.7) SECONDS INR 1.0 (0.9-1.3) APTT 29 (26.4-36.2) SECONDS D-Dimer (<230) ng/mL Sodium 139 (137-145) mmol/L Potassium 4.1 (3.4-5.1) mmol/L Chloride 104 (98-107) mmol/L Carbon Dioxide 27 (22-32) mmol/L BUN 16 (7-17) mg/dL Creatinine 0.99 (0.52-1.04) mg/dL Estimated GFR 55.3 L (>60) mL/min BUN/Creatinine Ratio 16.2 (6-22) Glucose 115 H (80-110) mg/dL Calcium 10.1 (8.4-10.2) mg/dL Total Bilirubin 0.5 (0.2-1.3) mg/dL AST 22 (14-36) IU/L ALT 14 (<35) IU/L Alkaline Phosphatase 57 (38-126) U/L Total Creatine Kinase 42 (30-135) U/L CK-MB (CK-2) TNP CK-MB (CK-2) Rel Index TNP Troponin I < 0.012 (0.01-0.034) ng/mL Total Protein 7.6 (6.3-8.2) g/dL Albumin 4.5 (3.5-5.0) g/dL Globulin 3.1 (1.7-4.1) g/dL Albumin/Globulin Ratio 1.5 (1.0-2.8) Lipase 148 (23-300) U/L 10/28/19 10/28/19 Range/Units 15:19 17:16 WBC (4.5-11.0) X10^3/uL RBC (4.0-5.2) X10^6/uL Hgb (12.0-16.0) g/dL Hct (36-46) % MCV (80-100) fL MCH (26-34) PG MCHC (30-36) % RDW (11.6-14.8) % Plt Count (150-400) X10^3/uL Neut % (Auto) (50-75) % Lymph % (Auto) (25-40) % Bulloch % (Auto) (3-14) % Eos % (Auto) (2-4) % Baso % (Auto) (0-2) % Neut # (Auto) (3043-5977) /uL Lymph # (Auto) (2052-6368) /uL Bulloch # (Auto) (0-900) /uL Eos # (Auto) (0-450) /uL Baso # (Auto) (0-100) /uL PT (10.1-12.7) SECONDS INR (0.9-1.3) APTT (26.4-36.2) SECONDS D-Dimer 261 H (<230) ng/mL Sodium (137-145) mmol/L Potassium (3.4-5.1) mmol/L Chloride (98-107) mmol/L Carbon Dioxide (22-32) mmol/L BUN (7-17) mg/dL Creatinine (0.52-1.04) mg/dL Estimated GFR (>60) mL/min BUN/Creatinine Ratio (6-22) Glucose (80-110) mg/dL Calcium (8.4-10.2) mg/dL Total Bilirubin (0.2-1.3) mg/dL AST (14-36) IU/L ALT (<35) IU/L Alkaline Phosphatase (38-126) U/L Total Creatine Kinase (30-135) U/L CK-MB (CK-2) CK-MB (CK-2) Rel Index Troponin I < 0.012 (0.01-0.034) ng/mL Total Protein (6.3-8.2) g/dL Albumin (3.5-5.0) g/dL Globulin (1.7-4.1) g/dL Albumin/Globulin Ratio (1.0-2.8) Lipase (23-300) U/L Point of Care Testing Glucose POC 89 Imaging Data Chest x-ray: Radiologist's Impression: [address] [id number] XRay Report Signed Patient: Apurva Oconnell KMR#: [id number] : 9Acct:[id number] Age/Sex: 69 / FDate of Service: 10/28/19 Loc: ED Accession Number: [id number] Procedure: XR chest 1V Ordering Provider: Scott Slade MD PROCEDURE: XR CHEST 1V INDICATIONS: chest pain TECHNIQUE: One view of the chest was acquired. COMPARISON: [facility], , XR CXR 1V, 11/06/2004, 15:25. FINDINGS: Surgical changes and devices: An AICD is seen. Lungs and pleura: Lungs are clear. No pleural effusions or pneumothorax. There is elevation the right hemidiaphragm. Mediastinum: The cardiac contours are mildly enlarged. The aorta demonstrates calcification and tortuosity. Bones and chest wall: No suspicious bony lesions. Age-appropriate bony degenerative changes are seen. Overlying soft tissues appear unremarkable. IMPRESSION: Elevation of the right hemidiaphragm. Mild cardiomegaly. AICD. Dictated by: Elie Felder M.D. on 10/28/2019 at 14:56 Approved by: Elie Felder M.D. on 10/28/2019 at 14:58 ECG Data Interpretation: 15:12: Paced rhythm, rate 56, IL interval 151, QTC 432. T-wave inversion noted in V2 through V6. Approximately [address] depression in V4 through V6, consistent with anterolateral ischemia. No ectopy. No acute changes. EKG also viewed by Dr. Slade per protocol. No prior EKGs for comparison. MDM Narrative Medical decision making narrative: 69-year-old female presents emergency department with chest pain that resolved with 3 nitro sprays given via EMS. History of stress cardiomyopathy, AICD and pacemaker, cardiac arrest before placement of pacemaker. Patient had some ST depressions and T-wave inversions on EKGs, serial troponins were negative. Patient has a heart score of 5. Differential includes unstable angina, ACS, and stress cardiomyopathy which patient has had in the past, however serial troponins are negative. Patient had a recent cardiac catheterization in November of 2017 that was clean, less likely acute coronary artery syndrome as hand lacer agrees that would be rare to develop a complete blockage a year and half to 2 years later. However, due to new T-wave inversions on EKGs, Dr. Gould suggest admission with serial troponins and echo in the morning. Less likely PE due as patient is not tachypneic, no tachycardia, no shortness of breath and patient has a negative age compensated D-dimer (patient's D-dimer is 265 and pateint's age adjusted D-dimer is 710). Additionally, patient's pain resolved with nitro administration suggesting cardiac involvement. Patient initially had anxiety about hospital admission, after conversation in shared decision making, patient agreed to admission. She was admitted to [facility]. Patient was informed she is not a lot of guests upstairs. She agreed to plan of care. <Fernando Shrestha, DO - Last Filed: 10/28/19 21:53> Lab Data Labs: Lab Results 10/28/19 10/28/19 10/28/19 Range/Units 15:00 15:00 15:00 WBC 6.3 (4.5-11.0) X10^3/uL RBC 4.73 (4.0-5.2) X10^6/uL Hgb 14.2 (12.0-16.0) g/dL Hct 41.6 (36-46) % MCV 88.0 (80-100) fL MCH 29.9 (26-34) PG MCHC 34.0 (30-36) % RDW 13.7 (11.6-14.8) % Plt Count 185 (150-400) X10^3/uL Neut % (Auto) 51.8 (50-75) % Lymph % (Auto) 30.0 (25-40) % Bulloch % (Auto) 9.2 (3-14) % Eos % (Auto) 7.5 H (2-4) % Baso % (Auto) 1.5 (0-2) % Neut # (Auto) 3200 (9625-5020) /uL Lymph # (Auto) 1900 (8075-8720) /uL Bulloch # (Auto) 600 (0-900) /uL Eos # (Auto) 500 H (0-450) /uL Baso # (Auto) 100 (0-100) /uL PT 11.8 (10.1-12.7) SECONDS INR 1.0 (0.9-1.3) APTT 29 (26.4-36.2) SECONDS D-Dimer (<230) ng/mL Sodium 139 (137-145) mmol/L Potassium 4.1 (3.4-5.1) mmol/L Chloride 104 (98-107) mmol/L Carbon Dioxide 27 (22-32) mmol/L BUN 16 (7-17) mg/dL Creatinine 0.99 (0.52-1.04) mg/dL Estimated GFR 55.3 L (>60) mL/min BUN/Creatinine Ratio 16.2 (6-22) Glucose 115 H (80-110) mg/dL Calcium 10.1 (8.4-10.2) mg/dL Total Bilirubin 0.5 (0.2-1.3) mg/dL AST 22 (14-36) IU/L ALT 14 (<35) IU/L Alkaline Phosphatase 57 (38-126) U/L Total Creatine Kinase 42 (30-135) U/L CK-MB (CK-2) TNP CK-MB (CK-2) Rel Index TNP Troponin I < 0.012 (0.01-0.034) ng/mL Total Protein 7.6 (6.3-8.2) g/dL Albumin 4.5 (3.5-5.0) g/dL Globulin 3.1 (1.7-4.1) g/dL Albumin/Globulin Ratio 1.5 (1.0-2.8) Lipase 148 (23-300) U/L 10/28/19 10/28/19 Range/Units 15:19 17:16 WBC (4.5-11.0) X10^3/uL RBC (4.0-5.2) X10^6/uL Hgb (12.0-16.0) g/dL Hct (36-46) % MCV (80-100) fL MCH (26-34) PG MCHC (30-36) % RDW (11.6-14.8) % Plt Count (150-400) X10^3/uL Neut % (Auto) (50-75) % Lymph % (Auto) (25-40) % Bulloch % (Auto) (3-14) % Eos % (Auto) (2-4) % Baso % (Auto) (0-2) % Neut # (Auto) (2709-9256) /uL Lymph # (Auto) (6973-7578) /uL Bulloch # (Auto) (0-900) /uL Eos # (Auto) (0-450) /uL Baso # (Auto) (0-100) /uL PT (10.1-12.7) SECONDS INR (0.9-1.3) APTT (26.4-36.2) SECONDS D-Dimer 261 H (<230) ng/mL Sodium (137-145) mmol/L Potassium (3.4-5.1) mmol/L Chloride (98-107) mmol/L Carbon Dioxide (22-32) mmol/L BUN (7-17) mg/dL Creatinine (0.52-1.04) mg/dL Estimated GFR (>60) mL/min BUN/Creatinine Ratio (6-22) Glucose (80-110) mg/dL Calcium (8.4-10.2) mg/dL Total Bilirubin (0.2-1.3) mg/dL AST (14-36) IU/L ALT (<35) IU/L Alkaline Phosphatase (38-126) U/L Total Creatine Kinase (30-135) U/L CK-MB (CK-2) CK-MB (CK-2) Rel Index Troponin I < 0.012 (0.01-0.034) ng/mL Total Protein (6.3-8.2) g/dL Albumin (3.5-5.0) g/dL Globulin (1.7-4.1) g/dL Albumin/Globulin Ratio (1.0-2.8) Lipase (23-300) U/L Point of Care Testing Glucose POC 89 Discharge Plan Departure Patient Disposition: Admitted As Inpatient Clinical Impression: Nonspecific ST-T wave electrocardiographic changes Chest pain Qualifiers: Chest pain type: unspecified Qualified Code(s): R07.9 - Chest pain, unspecified Admit Date/Time: 10/28/19 20:39 Admit Provider: Mireya Frank <Fernando Shrestha DO - Last Filed: 10/28/19 21:53> Cosign ED Attending Cosignature Attestation: Dr Shrestha Co-Sign Statement: I was available for consultation during this patient's emergency department visit. This chart is signed by myself for administrative purposes only. I did not have direct contact with this patient during this visit. They were seen independently by the APC.
[2019-10-28] MEDS: NITROGLYCERIN OINT 1 INCH/GM OINT...G. TOP (16:23)
[2019-10-28 16:26] LABS: D Dimer 261 ng/mL (<230)
[2019-10-28 17:45] LABS: Troponin I < 0.012 ng/mL (0.01-0.034)
[2019-10-28] MEDS: OXYCODONE/ACETAMINOPHEN 5/325 TABLET 2 TAB PO (21:23)
[2019-10-28 22:56] LABS: NT-proBNP (BNP-Adult 18+) 242 pg/mL (<125)
[2019-10-28 22:59] LABS: Troponin I < 0.012 ng/mL (0.01-0.034)
--- NOTE | 2019-10-28 23:42 | PM.HP.1 ---
History of Present Illness History of Present Illness Date Patient Seen: 10/28/19 Time Patient Seen: 21:45 Chief complaint: Chest Pain Narrative: Apurva Oconnell is a 69-year-old female with a history of Takotsubo's cardiomyopathy, cardiac arrest with implantation of an ICD in or again as a result of taking risperidone in the , and diabetes type 2 presented to the emergency department with a approximately 1 day history of nausea, followed by chest tightness and pain. She was sleeping until noon she stated that she woke up feeling nauseous and thought maybe her blood sugar was low. She went 3 steps to the living room and then started feeling her back and shoulders hurting. She then felt chest tightness so she sat down in a chair and thought she was having an anxiety attack. She took 2 buspirone 7.5 mg twice. Then she took 2 baby aspirin and the pain continued to be a 7/10. She checked her blood pressure it was 150/91 which she states is high for her. She asked her to call 911 and when she came to the hospital her initial blood sugar was 89. They gave her some juice in string she has. When she sat up she felt dizzy. She denies fevers sweats or chills or diaphoresis, shortness of breath, abdominal pain, dysuria, diarrhea or constipation. She does have chronic lumbar pain of which she had a recent lumbar surgery and is scheduled for a new lumbar surgery but this was postponed due to the current COVID-19 restrictions on elective surgeries. Patient History Medical History Arthritis (Acute) Asthma (Acute) CAD (coronary artery disease) (Acute) Cardiac arrest (Acute ~12/2013) Cardiomyopathy (Acute ~12/2017) Chronic pain (Acute) CVA (cerebral vascular accident) (Acute ~2004) Diabetes mellitus type 2 in nonobese (Chronic) Diabetic neuropathy (Acute) Essential hypertension (Chronic) GERD (gastroesophageal reflux disease) (Acute) Hearing impaired (Acute) History of cardiac arrest (Acute) Hyperlipidemia (Chronic) Hypothyroidism (Chronic) Kidney failure (Acute ~2001) Mixed hyperglyceridemia (Acute) Pneumonia (Acute) Prolonged QT interval (Acute) Severe anxiety with panic (Chronic) Takotsubo cardiomyopathy (Chronic) TIA (transient ischemic attack) (Acute) Surgical History AICD (automatic cardioverter/defibrillator) present (Acute ~12/2013) H/O: hysterectomy (Acute ~1979) Hx of bilateral cataract extraction (Acute) Hx of cardiac catheterization (Acute) Family & Social History Family History Mother Polysubstance abuse Other Adopted Social History: household members spouse Safety & Behavioral: Feels Safe in Current Yes Environment Been Physically Hurt or No Threatened By a Person Tobacco & Substance use: Smoking Status Never smoker alcohol intake current alcohol intake frequency a few times a week Substance Use Type does not use Meds Home Medications and Allergies Home Medications Medication Instructions Recorded Confirmed Type Novolin N NPH U-100 Insulin 10 unit SUBCUT BID 12/28/18 01/11/19 History aspirin [Aspir-81] 81 mg PO QPM 12/28/18 01/11/19 History atorvastatin [Lipitor] 20 mg PO BEDTIME 12/28/18 01/11/19 History buspirone 7.5 mg PO QID PRN 12/28/18 01/11/19 History fluticasone propionate [Flonase 1 spray INTRANASAL DAILY 12/28/18 01/11/19 History Allergy Relief] gabapentin 1,200 mg PO SEEINSTR 12/28/18 01/11/19 History hydroxyzine HCl 50 mg PO DAILY PRN 12/28/18 01/11/19 History levothyroxine 25 mcg PO BEDTIME 12/28/18 01/11/19 History losartan 50 mg PO DAILY 12/28/18 01/11/19 History metformin 500 mg PO BID 12/28/18 01/11/19 History omeprazole 20 mg PO DAILY 12/28/18 01/11/19 History oxycodone-acetaminophen 1 tab PO BID 12/28/18 01/11/19 History potassium 99 mg PO DAILY 12/28/18 01/11/19 History sertraline [Zoloft] 50 mg PO DAILY 12/28/18 01/11/19 History dexamethasone 4 mg PO Q8HR #12 tab 01/15/19 Rx diazepam 5 mg PO Q8HR PRN #40 tab 01/15/19 Rx hydromorphone 2 mg PO Q4HR PRN #60 tab 01/15/19 Rx oxycodone [OxyContin] 20 mg PO BID #40 tab 01/15/19 Rx Allergies Allergy/AdvReac Type Severity Reaction Status Date / Time Sulfa (Sulfonamide Allergy Intermediate Rash, Verified 01/11/19 11:07 Antibiotics) swelling NSAIDS (Non-Steroidal AdvReac Severe Severe Verified 01/11/19 11:07 Anti-Inflamma kidney failure risperidone AdvReac Severe Cardiac Verified 01/11/19 11:07 Arrest any med that prolongs QT AdvReac Severe Cardiac Uncoded 01/11/19 11:08 Arrest Review of Systems Review of Systems ROS: Yes All systems reviewed with the patient and are negative except as otherwise documented Exam Vital Signs (past 8 hours): - 10/28/19 16:00 10/28/19 16:21 10/28/19 16:23 Temperature Pulse Rate 51 L 52 L 50 L Respiratory Rate 20 20 Blood Pressure 143/76 H Blood Pressure [Left Arm] 133/82 143/76 H Pulse Oximetry 98 97 10/28/19 16:30 10/28/19 16:45 10/28/19 17:04 Temperature Pulse Rate 52 L 52 L 55 L Respiratory Rate 19 12 24 Blood Pressure Blood Pressure [Left Arm] Pulse Oximetry 95 95 97 10/28/19 19:58 10/28/19 20:30 10/28/19 21:00 Temperature Pulse Rate 51 L 56 L 50 L Respiratory Rate 21 17 12 Blood Pressure Blood Pressure [Left Arm] 125/92 H 194/95 H 184/80 H Pulse Oximetry 99 97 99 10/28/19 22:00 10/28/19 23:00 Temperature 98.0 F 97.9 F Pulse Rate 59 L 55 L Respiratory Rate 18 18 Blood Pressure 184/105 H 130/67 Blood Pressure [Left Arm] Pulse Oximetry 97 97 Oxygen Delivery Method Room Air Oxygen Flow Rate 0 Narrative Exam Narrative: Gen: Alert, oriented, well-developed 69 y.o. female, somewhat anxious HEENT: normocephalic, atraumatic, conjunctiva clear, sclera non-icteric, oral mucosa pink and moist Neck: supple, full ROM, no JVD Resp: Lungs CTA, non-labored breathing CV: RRR, no murmur or rubs Abd: soft, non-tender, normoactive BTs Skin: no lesions or rashes, dry and intact Neuro: Alert and oriented X 4 w/no focal deficits Extremities: moves all 4 extremities, is ambulatory, negative Mavis?s sign Psyche: Anxious but very pleasant normal mood and affect. Objective Labs Result Diagrams: 10/28/19 15:00 10/28/19 15:00 Labs: Laboratory Results - last 24 hr 10/28/19 10/28/19 10/28/19 15:00 15:00 15:00 WBC 6.3 RBC 4.73 Hgb 14.2 Hct 41.6 MCV 88.0 MCH 29.9 MCHC 34.0 RDW 13.7 Plt Count 185 Neut % (Auto) 51.8 Lymph % (Auto) 30.0 [place] % (Auto) 9.2 Eos % (Auto) 7.5 H Baso % (Auto) 1.5 Neut # (Auto) 3200 Lymph # (Auto) 1900 [place] # (Auto) 600 Eos # (Auto) 500 H Baso # (Auto) 100 PT 11.8 INR 1.0 APTT 29 D-Dimer Sodium 139 Potassium 4.1 Chloride 104 Carbon Dioxide 27 BUN 16 Creatinine 0.99 Estimated GFR 55.3 L BUN/Creatinine Ratio 16.2 Glucose 115 H Hemoglobin A1c Calcium 10.1 Total Bilirubin 0.5 AST 22 ALT 14 Alkaline Phosphatase 57 Total Creatine Kinase 42 CK-MB (CK-2) TNP CK-MB (CK-2) Rel Index TNP Troponin I < 0.012 NT-Pro-B Natriuret Pep Total Protein 7.6 Albumin 4.5 Globulin 3.1 Albumin/Globulin Ratio 1.5 Lipase 148 10/28/19 10/28/19 10/28/19 15:00 15:19 17:16 WBC RBC Hgb Hct MCV MCH MCHC RDW Plt Count Neut % (Auto) Lymph % (Auto) [place] % (Auto) Eos % (Auto) Baso % (Auto) Neut # (Auto) Lymph # (Auto) [place] # (Auto) Eos # (Auto) Baso # (Auto) PT INR APTT D-Dimer 261 H Sodium Potassium Chloride Carbon Dioxide BUN Creatinine Estimated GFR BUN/Creatinine Ratio Glucose Hemoglobin A1c 6.0 Calcium Total Bilirubin AST ALT Alkaline Phosphatase Total Creatine Kinase CK-MB (CK-2) CK-MB (CK-2) Rel Index Troponin I < 0.012 NT-Pro-B Natriuret Pep Total Protein Albumin Globulin Albumin/Globulin Ratio Lipase 10/28/19 10/28/19 22:25 22:25 WBC RBC Hgb Hct MCV MCH MCHC RDW Plt Count Neut % (Auto) Lymph % (Auto) [place] % (Auto) Eos % (Auto) Baso % (Auto) Neut # (Auto) Lymph # (Auto) [place] # (Auto) Eos # (Auto) Baso # (Auto) PT INR APTT D-Dimer Sodium Potassium Chloride Carbon Dioxide BUN Creatinine Estimated GFR BUN/Creatinine Ratio Glucose Hemoglobin A1c Calcium Total Bilirubin AST ALT Alkaline Phosphatase Total Creatine Kinase CK-MB (CK-2) CK-MB (CK-2) Rel Index Troponin I < 0.012 NT-Pro-B Natriuret Pep 242 H Total Protein Albumin Globulin Albumin/Globulin Ratio Lipase Assessment & Plan Assessment & Plan narrative: Apurva Oconnell will be placed into observation with a chest pain rule out. Chest pain, acute, present on admission -all 3 troponins were negative -proBNP was slightly elevated at 242 -nitro for chest pain, telemetry -she is scheduled for an echocardiogram in the morning -consult with cardiology if she has an abnormal echo Essential hypertension, chronic, present on admission -continue home dose of losartan 50 mg p.o. daily Diabetes type 2 well controlled with a hemoglobin A1c of 6.0, chronic, present on admission -a.c. HS glucose checks, carb controlled diet -she will be on a regular NPH of 10 units twice daily an low-dose regular insulin correctional scale -I am holding her metformin Hyperlipidemia, chronic, present on admission -continue home dose of atorvastatin 20 mg p.o. at bedtime Hypothyroidism, chronic, present on admission -continue home dose of levothyroxine 25 mcg p.o. daily Chronic back pain, chronic, present on admission -she will be undergoing a 2nd surgery with Dr. Jimenez at some point in the future -She is written for oxycodone 5 mg twice daily as needed Anxiety -continue home dose of hydroxyzine 50 mg p.o. daily as needed and buspirone 7.5 mg p.o. q.i.d. as needed for anxiety Consults: Dr. Tavarez at [facility] cardiology she would be notified that the patient is in house. Patient is placed into an observation Stay is not likely exceed 2 midnights. FEN: IV saline lock, carb control diet, BMP in the am. VTE Prophylaxis: Heparin 5000 units subcu twice daily Dispo: Probable discharged home Code Status: Full code as discussed with patient COVID-19 COVID-19 status: Not tested Quality VTE Deep Vein Thrombosis/Pulmonary Embolism Present on Admission: No
[2019-10-29] VITALS (7 sets, daily range): BP systolic 115–136; BP diastolic 59–81; PULSE 52–66; RESP 18; TEMP 36.1–37.1; O2SAT 93–98
[2019-10-29 04:15] LABS: Add Manual Diff / Slide Review NO; Basophils Absolute Auto 100 /uL (0-100); Basophils Percent Auto 1.1 % (0-2); Eosinophils Absolute Auto 500 /uL (0-450); Eosinophils Percent Auto 6.4 % (2-4); Hematocrit 38.4 % (36-46); Lymphocytes Absolute Auto 2300 /uL (1100-4500); Lymphocytes Percent Auto 28.8 % (25-40); Mean Corpuscular HGB Conc 33.8 % (30-36); Mean Corpuscular Hemoglobin 29.7 PG (26-34); Mean Corpuscular Volume 88.1 fL (80-100); Monocytes Absolute Auto 700 /uL (0-900); Monocytes Percent Auto 8.7 % (3-14); Neutrophils Absolute Auto 4300 /uL (1500-7000); Platelet Count 169 X10^3/uL (150-400); Red Blood Cell Count 4.36 X10^6/uL (4.0-5.2); Red Cell Distribution Width 13.3 % (11.6-14.8); White Blood Cell Count 7.8 X10^3/uL (4.5-11.0)
[2019-10-29 04:21] LABS: BUN Creatinine Ratio 16.7 (6-22); Blood Urea Nitrogen 20 mg/dL (7-17); Calcium 9.9 mg/dL (8.4-10.2); Carbon Dioxide 30 mmol/L (22-32); Chloride 104 mmol/L (98-107); Estimated Glomerular Filt Rate 44.3 mL/min (>60); Glucose 124 mg/dL (80-110); HEMOLYSIS < 15 (0-50); Potassium 4.2 mmol/L (3.4-5.1); Sodium 139 mmol/L (137-145)
[2019-10-29 04:33] LABS: Troponin I < 0.012 ng/mL (0.01-0.034)
[2019-10-29] MEDS: PANTOPRAZOLE 20 MG TABLET PO (05:48)
--- NOTE | 2019-10-29 08:00 | DI.ECHO.S_ITS ---
[facility] +---------+ Hospital +---------+ : : [address] : : : [place], [place] : : : : [id number] : : : : Phone: [phone] Echocardiogram Report + + :Name: KWADWO STEPHENSON Study Date: 10/29/2019 Height: 64 in : :Hospital Weight: 145 lb : : Gender: Female BSA: 1.7 m2 : :: 1950 Age: 69 yrs BP: 128/81 mmHg: :Reason For Study: CHEST PAIN WITH HISTORY OF STRESS INDUCED : :CARDIOMYOPATHY : :Ordering Physician: Kendal : :Hospitalist Performed By: Mildred Grady : :Referring: LARRY CANAS : + + Interpretation Summary Sinus bradycardia with occasionally V paced complexes. HR is 50-54 bpm. Normal LV size and wall thickness; there is normal wall motion and LV systolic function EF is 60-65%. Mild RV enlargement with normal RV function. There is mild LA enlargement. There is a pacing lead traversing the tricuspid valve with mild associated TR. Compared to prior study 01/26/2018 mld RV enlargement is new Procedure: A two-dimensional transthoracic echocardiogram with color flow and Doppler was performed. The study quality was technically adequate. Comparison is made with the echocardiogram of 01/26/2018. The patient has a paced rhythm. Left Ventricle: The left ventricle is normal in size, wall thickness, and systolic function without any focal wall motion abnormalities. There is no ventricular septal defect visualized. The ejection fraction is estimated to be 60-65%. Right Ventricle: There is a pacemaker lead in the right ventricle. The right ventricle is mildly dilated. Atria: The left atrium is mildly dilated. Right atrial size is normal. There is no Doppler evidence for an interatrial shunt. Mitral Valve: There is a flat closure plane of the the mitral valve leaflets. The mitral valve is normal. There is mild mitral regurgitation. Aortic Valve: The aortic valve is normal in structure and function. There is mild aortic valve sclerosis. No aortic regurgitation is present. Tricuspid Valve: The tricuspid valve is normal in structure and function. There is mild tricuspid regurgitation. The right ventricular systolic pressure is estimated to be at least 26 mmHg based on an estimated right atrial pressure of 3 mm Hg. Pulmonic Valve: The pulmonic valve is not well seen, but is grossly normal. There is a trace or physiologic amount of pulmonic regurgitation. Great Vessels: The aortic root is normal size. The ascending aorta is mildly enlarged. The aortic arch is normal in size. The IVC is of normal diameter and collapses greater than 50% with a sniff. This suggests a low right atrial pressure of 3 mm Hg. Pericardium/ Pleura There is no pericardial effusion. MMode/2D Measurements & Calculations LVIDd: 5.2 cm LVOT diam: 1.7 cm LVIDs: 3.1 cm Ao root diam: 3.1 cm FS: 39.7 % Aortic Jxn: 2.6 cm EPSS: 0.52 cm asc Aorta Diam: 3.6 cm IVSd: 0.76 cm Ao Arch Diam (Prox Trans): 2.5 cm LVPWd: 0.66 cm LV lama. diameter/BSA (cm/m^2): 3.0 LV sys. diameter/BSA (cm/m^2): 1.8 LA A2 area: 20.6 cm2 RA long axis: 4.7 cm LA A4 area: 18.0 cm2 RA area: 13.6 cm2 LA length (vol): 4.8 cm RA vol: 33.4 ml LA vol: 65.6 ml RA : 19.6 ml/m2 LA vol index: 38.4 ml/m2 RVD1 (basal): 3.7 cm RVD2 (mid): 3.1 cm TAPSE: 2.2 cm Doppler Measurements & Calculations Ao V2 max: 127.7 cm/sec LVOT Max Delio: 91.0 cm/sec Ao V2 mean: 89.9 cm/sec LV V1 max P.3 mmHg Ao max P.5 mmHg LV V1 VTI: 20.6 cm Ao mean P.5 mmHg NATHEN(I,D): 1.8 cm2 Ao V2 VTI: 28.1 cm NATHEN(V,D): 1.7 cm2 sev ratio: 0.73 NATHEN indexed to BSA (cm^2/m^2): 1.0 MV E max delio: 62.2 cm/sec TR max delio: 242.0 cm/sec MV A max delio: 66.9 cm/sec TR max P.4 mmHg MV E/A: 0.93 PA V2 max: 75.7 cm/sec Med Peak E' Delio: 5.7 cm/sec PA V2 mean: 46.5 cm/sec E/E' med: 10.9 PA mean P.0 mmHg Lat Peak E' Delio: 6.9 cm/sec PA Accel Time: 0.09 sec E/E' lat: 9.1 E/e' average: 10.0 MV dec time: 0.21 sec MV P1/2t: 61.9 msec MR ERO: 0.06 cm2 MV P1/2t max delio: 62.4 cm/sec MR PISA: 0.78 cm2 MVA(P1/2t): 3.6 cm2 MR flow rate: 28.9 cm3/sec MR PISA radius: 0.35 cm SV(LVOT): 49.2 ml Electronically signed by: Cyn Gould M.D. on Reading Physician:10/29/2019 07:26 PM
[2019-10-29] MEDS: LOSARTAN 50 MG TABLET PO (08:53)
[2019-10-29] MEDS: HEPARIN 5,000 UNIT/ML VIAL 5000 UNIT SUBCUT (08:53)
[2019-10-29] MEDS: OXYCODONE IR 5 MG TABLET PO ×2 (08:54→16:31)
[2019-10-29] MEDS: ASPIRIN EC 81 MG TABLET PO (08:54)
[2019-10-29] MEDS: SERTRALINE 50 MG TABLET PO (08:54)
[2019-10-29] MEDS: SODIUM CHLORIDE 0.9% FLUSH 10 ML IV (08:59)
--- NOTE | 2019-10-29 15:18 | CM.DANOTE ---
Patient is a 69 year old female who was admitted on 10/28/19 for Chest Pain. Pt has [employer] [facility] [employer] for insurance and her PCP is Dr. Jesse Blood. EMR was reviewed. Per MD, pt with hx of type 2 diabetes well managed and ruleout chest pain and to have Echo today and pending results then likely d/c home later today. Per RN, pt independent in room and lives with supportive spouse and no concerns at this time. SW met briefly bedside with pt and explained role and she confirms that she still lives with her in an RV type setting and is Independent with ADL's at baseline. Pt uses a walker for long distances but not indoors. Pt has a hx of SNF back in 2013 after heart issues and then again last year after back surgery at [facility] in January 2019. Pt states her chest pains have resolved and preference would be to d/c home once Echo results return and does not anticipate any SW needs at d/c. Plan: SW to follow for Echo results to confirm pt safe for d/c home with spouse later today. No SW needs at this time, please refer if indicated. YEN Casas Discharge Planning/Care Management CM Discharge Assessment Start: 10/29/19 15:12 Freq: Status: Active Protocol: Document 10/29/19 15:12 BF (Rec: 10/29/19 15:18 BF [id number]) Discharge Planning Assessment Assigned Stationary Equipment Mechanic YEN Senior DPOA/Assigned Designee Name informally spouse Nixon Contact Information [phone] Advance Directives? No Advance Directives on File No History Provided By Patient,Medical Record Has Patient been admitted in last 30 No days? Prior Living Arrangements RV Household Members spouse Type of transporation used prior to Drives own vehicle admit Independent with ADL's Yes Is patient alert and oriented? Yes Caregiver for Another No DME Already Rented / Owned FWW / Walker Patient/Family Preference OP PT Therapy Barriers to Discharge No Discharge Plan Home Transportation Arrangement Spouse Referrals Initiated None needed Review Status In Process Please Provide Date Initial DC 10/29/19 Assessment Was Performed Next Review Type Continued Stay Review
--- NOTE | 2019-10-29 17:57 | P.DS_ITS ---
History of Present Illness History of Present Illness Date Patient Seen: 10/29/19 Time Patient Seen: 17:57 Chief complaint: Chest Pain Narrative: As per TOLU Whitman: Apurva Oconnell is a 69-year-old female with a history of Takotsubo's cardiomyopathy, cardiac arrest with implantation of an ICD in or again as a result of taking risperidone in the , and diabetes type 2 presented to the emergency department with a approximately 1 day history of nausea, followed by chest tightness and pain. She was sleeping until noon she stated that she woke up feeling nauseous and thought maybe her blood sugar was low. She went 3 steps to the living room and then started feeling her back and shoulders hurting. She then felt chest tightness so she sat down in a chair and thought she was having an anxiety attack. She took 2 buspirone 7.5 mg twice. Then she took 2 baby aspirin and the pain continued to be a 7/10. She checked her blood pressure it was 150/91 which she states is high for her. She asked her to call 911 and when she came to the hospital her initial blood sugar was 89. They gave her some juice in string she has. When she sat up she felt dizzy. She denies fevers sweats or chills or diaphoresis, shortness of breath, abdominal pain, dysuria, diarrhea or constipation. She does have chronic lumbar pain of which she had a recent lumbar surgery and is scheduled for a new lumbar surgery but this was postponed due to the current COVID-19 restrictions on elective surgeries. Discharge Providers Provider Date of admission: 10/28/19 20:39 Discharge Date: 10/29/19 Primary care physician: Jesse Blood MD Discharge provider: Kuldeep Edwards DO Summary Hospital Course Discharge Diagnosis: Chest pain, acute, present on admission, reolved Essential hypertension, chronic, present on admission Diabetes type 2 well controlled with a hemoglobin A1c of 6.0, chronic, present on admission Hyperlipidemia, chronic, present on admission Hypothyroidism, chronic, present on admission Chronic back pain, chronic, present on admission Anxiety Hospital Course: Apurva Oconnell is a 69-year-old female with a history of Takotsubo's cardiomyopathy, cardiac arrest with implantation of an ICD in or again as a result of taking risperidone in the , and diabetes type 2 pre sented to the emergency department with a approximately 1 day history of nausea, followed by chest tightness and pain. Her EKG did not show any evidence of active ischemia and her chest pain improved without intervention. At the recommendation of cardiology in the emergency room, patient was admitted for observation and serial troponins, as well as a repeat TTE given her history of Takotsubo cardiomyopathy. She had undergone a LHC in 2018 when diagnosed with cardiomyopathy that showed clean coronaries. Troponins were negative x3 and Her echocardiogram was unremarkable and she was discharged home with plan for for follow up as previously scheduled with her PCP and order manager. No medication changes were made. Exam Vital Signs (past 8 hours): - 10/29/19 12:00 10/29/19 15:00 10/29/19 15:50 Temperature 97.6 F 98.7 F Pulse Rate 52 L 53 L Respiratory Rate 18 18 Blood Pressure 125/81 136/71 Pulse Oximetry 98 96 96 Oxygen Delivery Method Room Air Oxygen Flow Rate 0 Narrative Exam Narrative: Gen: Alert, oriented, well-developed 69 y.o. female, somewhat anxious HEENT: normocephalic, atraumatic, conjunctiva clear, sclera non-icteric, oral mucosa pink and moist Neck: supple, full ROM, no JVD Resp: Lungs CTA, non-labored breathing CV: RRR, no murmur or rubs Abd: soft, non-tender, normoactive BTs Skin: no lesions or rashes, dry and intact Neuro: Alert and oriented X 4 w/no focal deficits Extremities: moves all 4 extremities, is ambulatory, negative Mavis?s sign Psyche: Anxious but very pleasant normal mood and affect. Objective Labs Result Diagrams: 10/29/19 04:00 10/29/19 04:00 Labs: Laboratory Results - last 24 hr 10/28/19 10/28/19 10/28/19 15:00 22:25 22:25 WBC RBC Hgb Hct MCV MCH MCHC RDW Plt Count Neut % (Auto) Lymph % (Auto) [place] % (Auto) Eos % (Auto) Baso % (Auto) Neut # (Auto) Lymph # (Auto) [place] # (Auto) Eos # (Auto) Baso # (Auto) Sodium Potassium Chloride Carbon Dioxide BUN Creatinine Estimated GFR BUN/Creatinine Ratio Glucose Hemoglobin A1c 6.0 Calcium Magnesium Troponin I < 0.012 NT-Pro-B Natriuret Pep 242 H 10/29/19 10/29/19 10/29/19 04:00 04:00 04:00 WBC 7.8 RBC 4.36 Hgb 13.0 Hct 38.4 MCV 88.1 MCH 29.7 MCHC 33.8 RDW 13.3 Plt Count 169 Neut % (Auto) 55.0 Lymph % (Auto) 28.8 [place] % (Auto) 8.7 Eos % (Auto) 6.4 H Baso % (Auto) 1.1 Neut # (Auto) 4300 Lymph # (Auto) 23[address] [place] # (Auto) 700 Eos # (Auto) 500 H Baso # (Auto) 100 Sodium 139 Potassium 4.2 Chloride 104 Carbon Dioxide 30 BUN 20 H Creatinine 1.20 H Estimated GFR 44.3 L BUN/Creatinine Ratio 16.7 Glucose 124 H Hemoglobin A1c Calcium 9.9 Magnesium 2.0 Troponin I < 0.012 NT-Pro-B Natriuret Pep Discharge Plan Discharge Plan Patient Disposition: Home Discharge comment: You were admitted to the hospital with chest pain that has since resolved. You did not appear to be having a heart attack. An echocardiogram performed as recommended by the order manager consulted in the ER is still pending, we will call you with the results when available. No changes were made to your medications. Please follow up with your primary care provider and order manager as previously scheduled. Discharge orders & Medications Prescriptions: Continued oxycodone 5 mg Tablet 5 mg PO BID RF: 0 losartan 50 mg Tablet 50 mg PO DAILY RF: 0 metformin 500 mg Tablet 500 mg PO BID RF: 0 atorvastatin [Lipitor] 20 mg Tablet 20 mg PO BEDTIME RF: 0 aspirin [Aspir-81] 81 mg Tablet,Delayed Release (Dr/Ec) 81 mg PO QPM RF: 0 gabapentin 300 mg Capsule 1,200 mg PO SEEINSTR RF: 0 buspirone 7.5 mg Tablet 7.5 mg PO QID PRN (Reason: Anxiety) RF: 0 omeprazole 20 mg Capsule,Delayed Release(Dr/Ec) 20 mg PO DAILY RF: 0 sertraline [Zoloft] 50 mg Tablet 50 mg PO DAILY RF: 0 levothyroxine 25 mcg Capsule 25 mcg PO BEDTIME RF: 0 diazepam 5 mg Tablet 5 mg PO Q8HR PRN (Reason: Spasms) Qty: 40 RF: 0 Follow up/Referrals: Jesse Blood MD [Primary Care Provider] - Diet/Activity/Treatments Diet: Diet as Tolerated and Low-sodium Activity: As tolerated Discharge Data Primary Care Provider: Jesse Blood V Attending Provider: Mireya Frank Admit Date/Time: 10/28/19 20:39 Discharges patient from system. Discharge Date/Time: 10/29/19 19:01 Quality VTE Deep Vein Thrombosis/Pulmonary Embolism Present on Admission: No
== END 2019-10-29 19:01 | disposition home or self-care (01) ==
LOC: ED 20:34 → AC 20:39
PROVIDERS: Emergency Medicine; Admitting Provider Nurse Practitioner Family; Emergency Provider Nurse Practitioner; PCP Internal Medicine; Referring Provider Nurse Practitioner; Visit Provider Nurse Practitioner Family
DX: R07.9 Chest pain, unspecified (principal); Z86.74 Personal history of sudden cardiac arrest; I51.81 Takotsubo syndrome; E11.9 Type 2 diabetes mellitus without complications; Z79.4 Long term (current) use of insulin; I10 Essential (primary) hypertension; E78.5 Hyperlipidemia, unspecified; E03.9 Hypothyroidism, unspecified; M54.5 Low back pain
CPT/HCPCS: 36415; 71045; 80048; 80053; 82550; 82962; 83036; 83690; 83735; 83880; 84484; 85025; 85379; 85610; 85730; 93005; 93010; 93306; 96372; 99285; G0378; J1644

== ENCOUNTER → 2020-04-02 18:43 | Outpatient (ROUT) | payer OTHER, SELFPAY ==
[2019-10-28 22:07] VITALS: BMI 24.9
[2020-04-02 19:21] LABS: Hemoglobin A1C% w Est Avg Glu 5.9 % (4.0-6.0)
[2020-04-02 19:22] LABS: Aspartate Aminotransferase 25 IU/L (14-36); BUN Creatinine Ratio 15.3 (6-22); Blood Urea Nitrogen 15 mg/dL (7-17); Calcium 9.9 mg/dL (8.4-10.2); Carbon Dioxide 29 mmol/L (22-32); Chloride 102 mmol/L (98-107); Cholesterol 148 mg/dL (140-199); Estimated Glomerular Filt Rate 55.9 mL/min (>60); Glucose 109 mg/dL (80-110); HDL Cholesterol 76 mg/dL (40-60); HEMOLYSIS < 15 (0-50); LDL Cholesterol Calculated 32 mg/dL (<100); Potassium 4.2 mmol/L (3.4-5.1); Sodium 139 mmol/L (137-145); Triglycerides 199 mg/dL (35-150)
[2020-04-02 19:51] LABS: TSH w/ Reflex to FT4 1.94 uIU/mL (0.47-4.68)
[2020-04-02 20:09] LABS: Vitamin B12 > 1000 pg/mL (239-931)
== END ==
PROVIDERS: PCP Internal Medicine; Visit Provider Internal Medicine
DX: I10 Essential (primary) hypertension (principal); E78.2 Mixed hyperlipidemia; E03.9 Hypothyroidism, unspecified; E53.8 Deficiency of other specified B group vitamins; E11.42 Type 2 diabetes mellitus with diabetic polyneuropathy
CPT/HCPCS: 80048; 80061; 82607; 83036; 84443; 84450

== ENCOUNTER → 2020-06-19 12:32 | Outpatient (CLI) | payer OTHER, SELFPAY ==
[2019-10-28 22:07] VITALS: BMI 24.9
--- NOTE | 2020-06-19 | DI.RAD.S_ITS ---
PROCEDURE: XR SHOULDER RT MIN 2V INDICATIONS: RIGHT SHOULDER PAIN TECHNIQUE: 3 views of the shoulder were acquired. COMPARISON: None. FINDINGS: Bones: No fracture. Mild to moderate AC and glenohumeral joint degeneration. Chronic appearing right rib fractures. Soft tissues: No suspicious soft tissue calcifications. IMPRESSION: [id number] right shoulder joint degeneration Dictated by: Ramirez Frank M.D. on 06/19/2020 at 13:50 Approved by: Ramirez Frank M.D. on 06/19/2020 at 13:51
== END ==
PROVIDERS: PCP Internal Medicine; Referring Provider Internal Medicine; Visit Provider Internal Medicine
DX: M25.511 Pain in right shoulder (principal); M19.011 Primary osteoarthritis, right shoulder
CPT/HCPCS: 73030

== ENCOUNTER → 2022-05-01 12:04 | Outpatient (CLI) | payer OTHER, SELFPAY ==
[2019-10-28 22:07] VITALS: BMI 24.9
--- NOTE | 2022-05-01 | DI.RAD.S_ITS ---
PROCEDURE: XR LUMBAR SPINE 2-3V INDICATIONS: LOW BACK PAIN TECHNIQUE: 3 views of the lumbar spine were acquired. COMPARISON: [facility], CR, XR LUMBAR SPINE 2-3V, 01/11/2019, 12:49. FINDINGS: Bones: 5 [id number] vertebrae are present. There is normal bony alignment maintained by stable appearing transverse pedicle screws and vertical fixation rods bilaterally with interbody cage disc prosthesis devices spanning from L3 through L5.. No vertebral body compression fractures. No suspicious bony lesions. Soft tissues: Overlying bowel gas pattern is normal. No suspicious soft tissue calcifications. IMPRESSION: Stable appearance of the postoperative spine with reference to the study from January 2019. A source of new low back pain is not found. Dictated by: Omar Pan M.D. on 05/01/2022 at 13:19 Approved by: Omar Pan M.D. on 05/01/2022 at 13:20
--- NOTE | 2022-05-01 12:10 | DI.RAD.S_ITS ---
PROCEDURE: XR HIP W PEL IF DONE MARINO MIN 4V INDICATIONS: bilateral hip pain TECHNIQUE: AP pelvis with lateral view(s) of the bilateral hip(s). COMPARISON: None. FINDINGS: Bones: No fractures or dislocations. Pelvic ring appears intact. No suspicious bony lesions. There is asymmetric mild to moderate right and minimal left hip joint osteoarthritis Soft tissues: The visualized bowel gas pattern is normal. No suspicious soft tissue calcifications. IMPRESSION: Prior lumbosacral spine surgery-please refer to report from evaluation of that area same day. No acute disease over the pelvis and hips bilaterally with asymmetric right greater than left hip joint osteoarthritis as noted. Dictated by: Omar Pan M.D. on 05/01/2022 at 13:20 Approved by: Omar Pan M.D. on 05/01/2022 at 13:21
== END ==
PROVIDERS: PCP Internal Medicine; Referring Provider Internal Medicine; Visit Provider Internal Medicine
DX: M16.0 Bilateral primary osteoarthritis of hip (principal); M48.062 Spinal stenosis, lumbar region with neurogenic claudication; M25.551 Pain in right hip; M25.552 Pain in left hip
CPT/HCPCS: 72100; 73522